=== PATIENT | male | born 1930 | race Caucasian/White ===

== ENCOUNTER 2017-01-27 11:10 | Observation (INO) ==
--- NOTE | 2017-01-27 11:26 | Emergency Department Note ---
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 Periods of time where he does not have any issues that he will have periods of time or he requires blood. He just received a transfusion 2 units a few weeks ago. Today he was found to have a hemoglobin of 4.3. Son is here the patient's a DNR Comfort Care only. He states he is only here for blood only does not need any further evaluation. Onset (ago): day(s) (Hemoglobin) Pain Scale: 0 - Related Data Home Medications Medication Instructions Recorded Confirmed Acetaminophen [Tylenol] 650 mg PO Q4H PRN 05/13/16 09/25/16 Ascorbate Calcium [Vitamin C] 500 mg PO BID 05/13/16 09/25/16 Cyanocobalamin (B-12) [Vitamin B12] 1,000 mcg IM QMONTH 05/13/16 09/25/16 Cyanocobalamin (Vitamin B-12) 1,000 mcg PO DAILY 05/13/16 09/25/16 [Vitamin B-12] Desmopressin Acetate [Ddavp] 1 spray NS MOTH 05/13/16 09/25/16 Docusate [Colace] 100 mg PO BID 05/13/16 09/28/16 FentaNYL PATCH [Duragesic] 12 mcg TD Q72H 05/13/16 09/25/16 Ferrous Sulfate [Iron Supplement] 325 mg PO DAILY 05/13/16 09/25/16 Hydralazine HCl 50 mg PO Q8H 05/13/16 09/25/16 Polyethylene Glycol 3350 [MiraLAX] 17 gm PO DAILY 05/13/16 09/25/16 Tamsulosin [Flomax] 0.4 mg PO HS 05/13/16 09/25/16 Travoprost [Travatan Z] 1 drop BOTH EYES DAILY 05/13/16 09/25/16 LORazepam [Ativan] 0.5 mg PO DAILY 09/28/16 09/28/16 Pregabalin [Lyrica] 75 mg PO DAILY 09/28/16 09/28/16 Previous Rx's Medication Instructions Recorded Tranexamic Acid [Lysteda] 1,300 mg PO BID 60 Days 07/24/15 Haloperidol [Haldol] 0.5 mg PO BID PRN #0 tablet 05/18/16 Omeprazole [PriLOSEC] 40 mg PO BIDAC capsule 05/18/16 Allergies Allergy/AdvReac Type Severity Reaction Status Date / Time Penicillins Allergy Swelling Verified 07/04/15 12:33 of Lip/Tongue/Throat ibuprofen AdvReac Unknown Verified 05/13/16 15:45 NSAIDS (Non-Steroidal AdvReac Unknown Verified 05/13/16 15:45 Anti-Inflamma salicylates AdvReac Unknown Verified 05/13/16 15:45 Constitutional: Denies: fever, chills, weakness, weight change Eyes: Denies: eye pain, eye discharge, vision change ENT ED: Denies: ear pain, throat pain, dental pain, hearing loss, epistaxis, congestion, dysphagia Cardiovascular: Denies: chest pain, palpitations, dyspnea on exertion, edema, syncope Respiratory: Denies: cough, dyspnea, wheezes, hemoptysis, stridor Gastrointestinal: Denies: abdominal pain, nausea, vomiting, diarrhea, constipation, hematemesis, melena, hematochezia Genitourinary: Denies: urgency, dysuria, frequency, hematuria Musculoskeletal: Denies: back pain, neck pain, arthralgia, myalgia Integumentary: Denies: rash, abrasion, lesions Neurological: Reports: weakness (Generalized). Denies: headache, numbness, paresthesias, confusion, abnormal gait, vertigo Psychiatric: Denies: anxiety, depression, suicidal thoughts, homicidal thoughts , auditory hallucinations, visual hallucinations Endocrine: Denies: fatigue Hematological/Lymphatic: Denies: easy bleeding, easy bruising Allergic/Immunologic: Denies: facial swelling, urticaria Past Medical History - Past Medical History Medical history: Reports: arthritis, atrial fibrillation, coronary artery disease, dementia, diabetes, GERD, hypertension, myocardial infarction, other Psychiatric history: Reports: anxiety, other - Social History Smoking Status: Former smoker Smokeless Tobacco Status: No Alcohol use: Reports: none Drug use: Reports: none Physical Exam - General Limitations: no limitations General appearance: alert - Head Head exam: atraumatic, normocephalic, normal inspection - Eye Eye exam: Present: normal appearance, PERRL, EOMI - ENT ENT exam: normal exam, normal oropharynx, mucous membranes moist - Neck Neck exam: Present: normal inspection, full ROM, trachea midline - Chest Chest inspection: Present: normal inspection, symmetric chest wall rise - Respiratory Respiratory exam: Present: normal lung sounds bilaterally - Cardiovascular Cardiovascular exam: Present: regular rate, normal rhythm, normal heart sounds - Abdominal Exam Abdominal exam: Present: soft, Non-Tender. Absent: tenderness, distention, guarding, rebound, rigidity - Extremities Exam Extremities exam: Present: normal inspection, full ROM. Absent: tenderness, pedal edema - Expanded Lower Extremity Exam Neurovascular/Tendon exam: Absent: motor deficit, sensory deficit, tendon deficit - Back Exam Back exam: Present: normal inspection, full ROM. 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 Patient is a DNR CC. He is here for blood transfusion. Time: 13:08 - Consultations Consultation #1: Discussed with Emily Tee nurse practitioner, admit. Time: 13:07 Vital Signs Temperature 98.6 F 01/27/17 11:16 Pulse Rate 91 01/27/17 11:16 Respiratory Rate 18 01/27/17 11:16 Blood Pressure 119/57 01/27/17 11:16 O2 Sat by Pulse Oximetry 97 01/27/17 11:16 Temperature 98.6 F 01/27/17 11:16 Pulse Rate 90 01/27/17 12:59 Respiratory Rate 18 01/27/17 12:59 Blood Pressure 101/55 01/27/17 12:59 O2 Sat by Pulse Oximetry 96 01/27/17 12:59 Oxygen Delivery Oxygen Delivery Room Air Medical Decision Making - Lab Data Result diagrams: 01/27/17 12:40 Lab Results 01/27/17 01/27/17 Range/Units 08:45 12:40 WBC 7.8 (4.3-11.1) K/mcL RBC 1.41 L (4.19-5.50) M/mcL Hgb 4.3 L* (12.9-16.9) g/dL Hct 14.7 L* (37.5-50.1) % MCV 104.3 H (83.0-100.0) fL MCH 30.5 (28.0-33.3) pg MCHC 29.3 L (31.6-35.5) g/dL RDW 17.2 H (11.5-14.5) % Plt Count 294 (140-400) K/mcL MPV 10.9 (9.4-12.4) fL Nucleated RBCs/100 WBC 0.5 H (0) /100 WBC Blood Type O POSITIVE Crossmatch See Detail
[2017-01-27 12:57] LABS: Eosinophils # 0.1 K/mcL (0.0-0.6); Eosinophils % 1.4 %; Immature Granulocytes % 0.6 % (0-4); Lymphocytes # 0.4 K/mcL (0.6-4.6); Lymphocytes % 5.4 %; Mean Corpuscular HGB Conc 29.3 g/dL (31.6-35.5); Mean Corpuscular Hemoglobin 30.5 pg (28.0-33.3); Mean Corpuscular Volume 104.3 fL (83.0-100.0); Mean Platelet Volume 10.9 fL (9.4-12.4); Monocytes # 0.9 K/mcL (0.0-1.3); Monocytes % 11.3 %; Neutrophils # 6.3 K/mcL (1.6-8.9); Nucleated Red Blood Cells 0.5 /100 WBC (0); Platelet Count 294 K/mcL (140-400); Red Blood Count 1.41 M/mcL (4.19-5.50); Red Cell Distribution Width 17.2 % (11.5-14.5); Segmented Neutrophils % 81.3 %
[2017-01-27 13:03] LABS: Hematocrit 14.7 % (37.5-50.1); Hemoglobin 4.3 g/dL (12.9-16.9)
[2017-01-27 13:07] LABS: BUN/Creatinine Ratio 33 (6-26); Carbon Dioxide 25 mEq/L (19-29); Chloride 109 mEq/L (98-109); Glucose 186 mg/dL (70-99); Osmolality,Calculated 305 (280-300); Potassium 3.9 mEq/L (3.5-4.5); Sodium 142 mEq/L (136-145); eGFR For African Americans > 60 (> 60); eGFR For Non-African Americans > 60 (> 60)
[2017-01-27 13:08] LABS: Blood Urea Nitrogen 30 mg/dL (8-26)
[2017-01-27 13:43] LABS: Anisocytosis 1+ (Not Present)
[2017-01-27 13:44] LABS: Hypochromasia Present (Not Present)
[2017-01-27 13:45] LABS: Macrocytosis Present (Not Present); Polychromasia 3+ (Not Present)
[2017-01-27 13:46] LABS: Basophilic Stippling 1+ (Not Present); Platelet Estimate Normal (Normal)
[2017-01-27] MEDS ORDERED: 0.9 % Sodium Chloride 250 ML ONE ×2 (13:47→17:55)
[2017-01-27] MEDS ORDERED: Furosemide 20 MG/2 ML VIAL IVP ONE (14:35)
[2017-01-27] MEDS ORDERED: Naloxone 0.4 MG/ML INJ IVP PRN (14:36)
--- NOTE | 2017-01-27 15:34 | Internal Med History&Physical ---
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 Routine check of H&H revealed hemoglobin of 4.3 type and cross for 2 units of PRBCs will give Lasix in between due to history of congestive heart failure 2 we will recheck H&H if hemoglobin above 7 will discharge back to ECF (2) Von Willebrands disease Current visit: No Status: Chronic 1 she is being followed by oncology will continue with home regime and have patient follow up with oncology as outpatient Internal Medicine - H&P: HPI Chief complaint: low hgb Admitted From: Emergency Dept Plans for Post Hospital Care: Transfer Care Home Facility History of present illness: Mr. 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 Patient has severe dementia information is obtained from medical records and son who is at bedside. According to the son and patient underwent routine blood draw today was found to have a hemoglobin of 4.3 he does have a past history of bleeding his most recent transfusion was approximately 10 days ago. He presented to the ER for blood transfusion. According to ER records patient's hemoglobin was 4.3, he was typed and screened for 2 units PRBCs According to the patient's son and the patient is a DNR CC he requests no further workup and would like the patient to receive blood and be discharged back to ECF. He has been admitted for blood transfusion of 2 units PRBCs we will recheck his hemoglobin if of greater than 7 we will transfer back to ECF. Presently patient is confused pleasant and appropriate he does not appear to be any distress he is hemodynamically stable at this time. Past Med Surg Social Fam HX - Past Medical History Medical history: arthritis, atrial fibrillation, coronary artery disease, dementia, diabetes, GERD, hypertension, myocardial infarction, other Psychiatric history: anxiety, other - Social History Smoking Status: Former smoker Smokeless Tobacco Status: No Alcohol use: none Drug use: none - Family History Mother Living Status: Cause of : liver cancer Hx Family Cardiac Disorders: Yes Hx Family Respiratory Disorders: No Hx Family Cancer: Yes (liver cancer) Hx Family Genitourinary Disorders: No Hx Family Endocrine Disorder: No Hx Family Musculoskeletal Disorders: No Hx Family Neuromuscular Disorders: No Hx Family Neurologic Disorders: No Hx Family HEENT Disorders: Yes (thinks so) Hx Family Autoimmune Disorders: No Hx Family Reproductive Disorders: No Hx Family Psychosocial Disorders: No Hx Family Medical Disorders: No Father Living Status: Hx Family Cardiac Disorders: Yes (HTN) Hx Family Respiratory Disorders: No Hx Family Cancer: No Hx Family GI Disorders: No Hx Family Genitourinary Disorders: No Hx Family Endocrine Disorder: Yes (DM) Hx Family Musculoskeletal Disorders: No Hx Family Neuromuscular Disorders: No Hx Family Neurologic Disorders: No Hx Family HEENT Disorders: No Hx Family Autoimmune Disorders: No Hx Family Reproductive Disorders: No Hx Family Psychosocial Disorders: No Hx Family Medical Disorders: No Son Living Status: Still Living Hx Family Cardiac Disorders: Yes (htn) Internal Medicine - H&P: Meds Tranexamic Acid [Lysteda] 1,300 mg PO BID 60 Days 07/24/15 [Rx] Acetaminophen [Tylenol] 325 mg PO Q4H PRN 05/13/16 [History] Ascorbate Calcium [Vitamin C] 500 mg PO BID 05/13/16 [History] Cyanocobalamin (B-12) [Vitamin B12] 1,000 mcg IM QMONTH 05/13/16 [History] Cyanocobalamin (Vitamin B-12) [Vitamin B-12] 1,000 mcg PO DAILY 05/13/16 [ History] Desmopressin Acetate [Ddavp] 1 spray NS MOTH 05/13/16 [History] Docusate [Colace] 100 mg PO BID 05/13/16 [History] FentaNYL PATCH [Duragesic] 12 mcg TD Q72H 05/13/16 [History] Ferrous Sulfate [Iron Supplement] 325 mg PO DAILY 05/13/16 [History] Hydralazine HCl 50 mg PO Q8H 05/13/16 [History] Polyethylene Glycol 3350 [MiraLAX] 17 gm PO DAILY 05/13/16 [History] Tamsulosin [Flomax] 0.4 mg PO HS 05/13/16 [History] Travoprost [Travatan Z] 1 drop BOTH EYES BID 05/13/16 [History] Omeprazole [PriLOSEC] 40 mg PO BIDAC capsule 05/18/16 [Rx] LORazepam [Ativan] 0.5 mg PO 1400 09/28/16 [History] Pregabalin [Lyrica] 75 mg PO BID 09/28/16 [History] Nitrofurantoin Monohyd/M-Cryst [Macrobid 100 mg Capsule] 100 mg PO BID 01/27/17 [History] Timolol Maleate 0.5% [Timolol Maleate 0.5%] 1 drop LEFT EYE BID 01/27/17 [ History] Allergies Penicillins Allergy (Verified 07/04/15 12:33) Swelling of Lip/Tongue/Throat ibuprofen Adverse Reaction (Verified 05/13/16 15:45) Unknown List from [facility] NSAIDS (Non-Steroidal Anti-Inflamma Adverse Reaction (Verified 05/13/16 15:45) Unknown List from [facility] salicylates Adverse Reaction (Verified 05/13/16 15:45) Unknown List from [facility] ROS unobtainable: due to mental status All Systems PM: A 10-system review of systems was performed and is negative for pertinent findings except as documented above in the HPI. - Constitutional Vitals: Temp Pulse Resp BP Pulse Ox 98.7 F 82 14 144/77 93 L 01/27/17 15:14 01/27/17 15:14 01/27/17 15:14 01/27/17 15:14 01/27/17 15:14 General appearance: Present: A&O X 0, cooperative - Head Head exam: Present: atraumatic, normocephalic - Eye Eye exam: Present: PERRL, conjuntiva pink, sclera anicteric Pupils: Present: PERRL - Neck Neck exam general surgery: Present: supple, trachea midline. Absent: lymphadenopathy - Respiratory Respiratory exam: Present: CTAB. Absent: accessory muscle use, rales, rhonchi, wheezes - Cardiovascular Cardiovascular exam: Present: RRR, +S1, +S2. Absent: diastolic murmur, gallop, rubs, systolic murmur - GI/Abdominal GI/Abdominal exam: Present: normal bowel sounds, soft, no peritoneal signs. Absent: distended, tenderness - Extremities Exam Extremities exam: Present: warm, radial pulses palpable and symetrical. Absent : calf tenderness, cyanotic, pedal edema - Neurological Exam Neurological exam: Present: alert. Absent: pronater drift, facial droop, speech deficit - Skin Skin exam: Present: dry, intact Internal Med - H&P Results - Labs CBC & Chem 7: 01/27/17 12:40 01/27/17 12:40 - VTE Reasons for not Prescribing Prophylaxis: Treatment not Indicated - Low risk for VTE <Bertram Mora - Last Filed: 01/27/17 20:31> Internal Medicine - H&P: HPI History of present illness: Mr. Mejia is a 86 year old male All Systems PM: A 10-system review of systems was performed and is negative for pertinent findings except as documented above in the HPI. - Constitutional Vitals: Temp Pulse Resp BP Pulse Ox 98.3 F 79 16 144/71 93 L 01/27/17 18:51 01/27/17 18:51 01/27/17 18:51 01/27/17 18:51 01/27/17 18:51 Internal Med - H&P Results - Labs CBC & Chem 7: 01/27/17 12:40 01/27/17 12:40 - Attending Attestation I examined this patient and my medical decision-making was reviewed with the Advanced Practice Provider. I agree with the documented findings, disposition and treatment plan as described except to the extent set forth below. The patient is asleep, in no acute distress, heart regular rate and rhythm S1- S2 no murmurs rubs or gallops. Abdomen soft nontender nondistended Plan for acute on chronic anemia we will transfuse 2 units PRBC and will discharge the patient back to the care home if hemoglobin is above 7. His hemoglobin is still below 7 we will transfuse a third unit and recheck in the morning.
[2017-01-27] MEDS ORDERED: Acetaminophen 325 MG TABLET PO PRN (15:56)
--- NOTE | 2017-01-27 16:03 | Discharge Summary ---
Date of Encounter: 01/27/17 Time of Encounter: 22:00 - Discharge Diagnosis (1) Acute blood loss anemia Priority: Primary Status: Acute (2) GI bleed Priority: Secondary Status: Chronic Qualifiers: GI bleed type/associated pathology: unspecified gastrointestinal hemorrhage type Qualified Code(s): K92.2 - Gastrointestinal hemorrhage, unspecified (3) Von Willebrands disease Priority: Secondary Status: Chronic - Discharge Medications Home Medications: Tranexamic Acid [Lysteda] 1,300 mg PO BID 60 Days 07/24/15 [Rx] Acetaminophen [Tylenol] 325 mg PO Q4H PRN 05/13/16 [History] Ascorbate Calcium [Vitamin C] 500 mg PO BID 05/13/16 [History] Cyanocobalamin (B-12) [Vitamin B12] 1,000 mcg IM QMONTH 05/13/16 [History] Cyanocobalamin (Vitamin B-12) [Vitamin B-12] 1,000 mcg PO DAILY 05/13/16 [ History] Desmopressin Acetate [Ddavp] 1 spray NS MOTH 05/13/16 [History] Docusate [Colace] 100 mg PO BID 05/13/16 [History] FentaNYL PATCH [Duragesic] 12 mcg TD Q72H 05/13/16 [History] Ferrous Sulfate [Iron Supplement] 325 mg PO DAILY 05/13/16 [History] Hydralazine HCl 50 mg PO Q8H 05/13/16 [History] Polyethylene Glycol 3350 [MiraLAX] 17 gm PO DAILY 05/13/16 [History] Tamsulosin [Flomax] 0.4 mg PO HS 05/13/16 [History] Travoprost [Travatan Z] 1 drop BOTH EYES BID 05/13/16 [History] Omeprazole [PriLOSEC] 40 mg PO BIDAC capsule 05/18/16 [Rx] LORazepam [Ativan] 0.5 mg PO 1400 09/28/16 [History] Pregabalin [Lyrica] 75 mg PO BID 09/28/16 [History] Nitrofurantoin Monohyd/M-Cryst [Macrobid 100 mg Capsule] 100 mg PO BID 01/27/17 [History] Timolol Maleate 0.5% [Timolol Maleate 0.5%] 1 drop LEFT EYE BID 01/27/17 [ History] Allergies/Adverse Reactions: Allergies Penicillins Allergy (Verified 07/04/15 12:33) Swelling of Lip/Tongue/Throat ibuprofen Adverse Reaction (Verified 05/13/16 15:45) Unknown List from [facility] NSAIDS (Non-Steroidal Anti-Inflamma Adverse Reaction (Verified 05/13/16 15:45) Unknown List from [facility] salicylates Adverse Reaction (Verified 05/13/16 15:45) Unknown List from [facility] Date of admission: 01/27/17 14:05 Primary care physician: Rik Perez MD Consults: 01/27/17 14:57 Consult to [employer] Superintendent [CONS] Routine Reason for SW Consult: patient from [facility]. bed hold? 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 He was typed and crossed for 2 units PRBC and transfused with 20 of lasix administered between units. He tolerated the transfusions without any adverse effects and was discharged back to ECF. He is followed by Hematology and will be monitored as an outpatient per their team. Hospital course: Mr. Mejia is a 86 year old male - Time Spent with Patient Total time spent providing and/or coordinating discharge services: Less than 30 minutes - Constitutional Vitals: Temp Pulse Resp BP Pulse Ox 98.7 F 82 14 144/77 93 L 01/27/17 15:14 01/27/17 15:14 01/27/17 15:14 01/27/17 15:14 01/27/17 15:14 Exam: confused - Eye Eye exam: Present: PERRL, conjuntiva pink, sclera anicteric Pupils: Present: PERRL - Neck Neck exam general surgery: Present: supple, trachea midline. Absent: lymphadenopathy - Respiratory Respiratory exam: Present: CTAB. Absent: accessory muscle use, rales, rhonchi, wheezes - Cardiovascular Cardiovascular exam: Present: RRR, +S1, +S2. Absent: diastolic murmur, gallop, rubs, systolic murmur - GI/Abdominal GI/Abdominal exam: Present: normal bowel sounds, soft, no peritoneal signs. Absent: distended, tenderness - Extremities Exam Extremities exam: Present: warm, radial pulses palpable and symetrical. Absent : calf tenderness, cyanotic, pedal edema - Neurological Exam Neurological exam: Present: alert. Absent: pronater drift, facial droop, speech deficit - VTE Reasons for not Prescribing Prophylaxis: Treatment not Indicated - Low risk for VTE
[2017-01-27] MEDS ORDERED: TRANEXAMIC ACID 1300 MG PO SCH (21:00)
[2017-01-27] MEDS ORDERED: Nitrofurantoin (BID) 100 MG CAPSULE PO SCH (21:00)
[2017-01-27] MEDS ORDERED: Pregabalin 75 MG CAPSULE PO SCH (21:00)
[2017-01-27 23:25] VITALS: BP 129/75
== END 2017-01-28 00:20 ==
LOC: 3BNU 11:10 → EMEROO 11:10 → 3BNU 14:58
PROVIDERS: ADMIT Internal Medicine; ATTEND Nurse Practitioner Family

== ENCOUNTER 2017-02-10 14:41 | Observation (INO) ==
[2017-02-10] MEDS ORDERED: 0.9 % Sodium Chloride 1,000 ML IVC ONE (14:44)
--- NOTE | 2017-02-10 14:45 | Emergency Department Note ---
Disposition Clinical Impression: Von Willebrand disease Anemia Qualifiers: Anemia type: iron deficiency Iron deficiency anemia type: chronic blood loss Qualified Code(s): D50.0 - Iron deficiency anemia secondary to blood loss ( chronic) Disposition: Admitted As Inpatient Condition: Fair Referrals: Rik Perez MD [Primary Care Provider] - Forms: ED Satisfaction Letter General Adult HPI - General Chief complaint: ED Recheck/Abnormal Lab/Rx Stated complaint: low HGB Time Seen by Provider: 02/10/17 14:43 Source: patient Mode of arrival: EMS Nursing Notes Reviewed: Yes Vital Signs Reviewed: Yes - History of Present Illness HPI Narrative: She is a 86-year-old male with multiple transfusions in the past with a history of von Willebrand's disease is coming from a [facility] for blood transfusion. The patient states he is a little more weak than normal he has been nonambulatory for several years. He has had multiple transfusions in the past he had a massive GI bleed approximately 6 years ago requiring surgery. He denies any blade blood per rectum or any black stools Improves with: nothing Worsens with: nothing Associated symptoms: Reports: denies other symptoms Treatments Prior to Arrival: none - Related Data Home Medications Medication Instructions Recorded Confirmed Acetaminophen [Tylenol] 325 mg PO Q4H PRN 05/13/16 01/27/17 Ascorbate Calcium [Vitamin C] 500 mg PO BID 05/13/16 01/27/17 Cyanocobalamin (B-12) [Vitamin B12] 1,000 mcg IM QMONTH 05/13/16 01/27/17 Cyanocobalamin (Vitamin B-12) 1,000 mcg PO DAILY 05/13/16 01/27/17 [Vitamin B-12] Desmopressin Acetate [Ddavp] 1 spray NS MOTH 05/13/16 01/27/17 Docusate [Colace] 100 mg PO BID 05/13/16 01/27/17 FentaNYL PATCH [Duragesic] 12 mcg TD Q72H 05/13/16 01/27/17 Ferrous Sulfate [Iron Supplement] 325 mg PO DAILY 05/13/16 01/27/17 Hydralazine HCl 50 mg PO Q8H 05/13/16 01/27/17 Polyethylene Glycol 3350 [MiraLAX] 17 gm PO DAILY 05/13/16 01/27/17 Tamsulosin [Flomax] 0.4 mg PO HS 06/22/16 03/08/17 Travoprost [Travatan Z] 1 drop BOTH EYES BID 05/13/16 01/27/17 LORazepam [Ativan] 0.5 mg PO 1400 09/28/16 01/27/17 Pregabalin [Lyrica] 75 mg PO BID 09/28/16 01/27/17 Nitrofurantoin Monohyd/M-Cryst 100 mg PO BID 01/27/17 01/27/17 [Macrobid 100 mg Capsule] Timolol Maleate 0.5% [Timolol 1 drop LEFT EYE BID 01/27/17 01/27/17 Maleate 0.5%] Previous Rx's Medication Instructions Recorded Tranexamic Acid [Lysteda] 1,300 mg PO BID 60 Days 07/24/15 Omeprazole [PriLOSEC] 40 mg PO BIDAC capsule 05/18/16 Allergies Allergy/AdvReac Type Severity Reaction Status Date / Time Penicillins Allergy Swelling Verified 07/04/15 12:33 of Lip/Tongue/Throat ibuprofen AdvReac Unknown Verified 05/13/16 15:45 NSAIDS (Non-Steroidal AdvReac Unknown Verified 05/13/16 15:45 Anti-Inflamma salicylates AdvReac Unknown Verified 05/13/16 15:45 All systems ED: reviewed and negative except as stated. Constitutional: Reports: weakness. Denies: fever, chills Gastrointestinal: Denies: abdominal pain, nausea, vomiting, melena, hematochezia Past Medical History - Past Medical History Source: patient, old records reviewed, obtained from family, nursing notes reviewed Medical history: Reports: arthritis, atrial fibrillation, coronary artery disease, dementia, diabetes, GERD, hypertension, myocardial infarction, other Psychiatric history: Reports: anxiety, other - Social History Smoking Status: Former smoker Smokeless Tobacco Status: No Alcohol use: Reports: none Drug use: Reports: none Physical Exam - General Limitations: no limitations - Head Head exam: atraumatic, normocephalic, normal inspection - Eye Eye exam: Present: other (pale conjunctivae) - ENT ENT exam: normal exam, normal oropharynx, mucous membranes moist - Neck Neck exam: Present: normal inspection, full ROM, trachea midline - Chest Chest inspection: Present: normal inspection, symmetric chest wall rise - Respiratory Respiratory exam: Present: normal lung sounds bilaterally - Cardiovascular Cardiovascular exam: Present: regular rate, normal rhythm, normal heart sounds - Abdominal Exam Abdominal exam: Present: soft, Non-Tender. Absent: tenderness, distention, guarding, rebound, rigidity - Back Exam Back exam: Present: normal inspection, full ROM. Absent: tenderness - Neurological Exam Neurological exam: Present: alert, oriented X3 - Psychiatric Psychiatric exam: Present: normal affect, normal mood - Skin Skin exam: Present: warm, dry, intact, normal color Course Vital Signs Temperature 98.1 F 02/10/17 14:42 Pulse Rate 73 02/10/17 14:42 Respiratory Rate 16 02/10/17 14:42 Blood Pressure 128/77 02/10/17 14:42 O2 Sat by Pulse Oximetry 99 02/10/17 14:42 Temperature 98.1 F 02/10/17 14:42 Pulse Rate 73 02/10/17 14:42 Respiratory Rate 16 02/10/17 14:42 Blood Pressure 128/77 02/10/17 14:42 O2 Sat by Pulse Oximetry 99 02/10/17 14:42 Oxygen Delivery Oxygen Delivery Room Air Medical Decision Making - Medical Records Medical records reviewed: Yes I reviewed the patient's medical records. - Lab Data Lab results reviewed: Yes I reviewed the patient's lab results. Result diagrams: 02/10/17 14:58 02/10/17 14:58 Lab Results 02/10/17 02/10/17 02/10/17 Range/Units 14:58 14:58 14:58 WBC 5.9 (4.3-11.1) K/mcL RBC 2.28 L (4.19-5.50) M/mcL Hgb 6.5 L (12.9-16.9) g/dL Hct 22.4 L (37.5-50.1) % MCV 98.2 (83.0-100.0) fL MCH 28.5 (28.0-33.3) pg MCHC 29.0 L (31.6-35.5) g/dL RDW 15.3 H (11.5-14.5) % Plt Count 389 (140-400) K/mcL MPV 10.4 (9.4-12.4) fL Immature Gran % 0.5 (0-4) % Seg Neutrophils % 76.4 % Lymphocytes % 11.3 % Monocytes % 9.4 % Eosinophils % 1.7 % Basophils % 0.7 % Neutrophils # 4.5 (1.6-8.9) K/mcL Lymphocytes # 0.7 (0.6-4.6) K/mcL Monocytes # 0.6 (0.0-1.3) K/mcL Eosinophils # 0.1 (0.0-0.6) K/mcL Basophils # 0.0 (0.0-0.2) K/mcL PT 11.0 (9.4-12.1) Seconds INR 1.0 APTT 37.5 H (26.0-36.0) Seconds Sodium 140 (136-145) mEq/L Potassium 3.3 L (3.5-4.5) mEq/L Chloride 107 (98-109) mEq/L Carbon Dioxide 22 (19-29) mEq/L BUN 16 (8-26) mg/dL Creatinine 0.80 (0.72-1.25) mg/dL Est GFR ( Amer) > 60 (> 60) Est GFR (Non-Af Amer) > 60 (> 60) BUN/Creatinine Ratio 20 (6-26) Glucose 197 H (70-99) mg/dL Calculated Osmolality 297 (280-300) Calcium 7.8 L (8.6-10.8) mg/dL Magnesium 1.8 (1.6-2.6) mg/dL Critical Care Time Total Critical Care Time: 40 Attestation: Critical care performed: Time is exclusive of separately billable procedures. Time includes: direct patient care, patient reassessment, coordination of patient care, interpretation of data (laboratory data, radiology data, and respiratory data), review of patient's medical records, medical consultation and documentation of patient care. Procedures included in critical care time: Procedures excluded from critical care time:
[2017-02-10 15:11] LABS: Basophils % 0.7 %; Eosinophils # 0.1 K/mcL (0.0-0.6); Eosinophils % 1.7 %; Hematocrit 22.4 % (37.5-50.1); Hemoglobin 6.5 g/dL (12.9-16.9); Immature Granulocytes % 0.5 % (0-4); Lymphocytes # 0.7 K/mcL (0.6-4.6); Lymphocytes % 11.3 %; Mean Corpuscular Hemoglobin 28.5 pg (28.0-33.3); Mean Corpuscular Volume 98.2 fL (83.0-100.0); Mean Platelet Volume 10.4 fL (9.4-12.4); Monocytes # 0.6 K/mcL (0.0-1.3); Monocytes % 9.4 %; Neutrophils # 4.5 K/mcL (1.6-8.9); Platelet Count 389 K/mcL (140-400); Red Blood Count 2.28 M/mcL (4.19-5.50); Red Cell Distribution Width 15.3 % (11.5-14.5); Segmented Neutrophils % 76.4 %
[2017-02-10 15:23] LABS: Activated Partial Thrombo Time 37.5 Seconds (26.0-36.0)
[2017-02-10 15:24] LABS: BUN/Creatinine Ratio 20 (6-26); Blood Urea Nitrogen 16 mg/dL (8-26); Calcium 7.8 mg/dL (8.6-10.8); Carbon Dioxide 22 mEq/L (19-29); Chloride 107 mEq/L (98-109); Glucose 197 mg/dL (70-99); Magnesium 1.8 mg/dL (1.6-2.6); Osmolality,Calculated 297 (280-300); Potassium 3.3 mEq/L (3.5-4.5); Sodium 140 mEq/L (136-145); eGFR For African Americans > 60 (> 60); eGFR For Non-African Americans > 60 (> 60)
[2017-02-10] MEDS ORDERED: 0.9 % Sodium Chloride 250 ML ONE ×2 (17:31→22:02)
[2017-02-10] MEDS ORDERED: Furosemide 20 MG/2 ML VIAL IVP ONE (21:52)
[2017-02-10] MEDS ORDERED: Naloxone 0.4 MG/ML INJ IVP PRN (23:54)
[2017-02-11] MEDS ORDERED: Cyanocobalamin (B-12) 1,000 MCG TABLET PO SCH
--- NOTE | 2017-02-11 00:08 | Internal Med History&Physical ---
<AsterGaEricka Ann - Last Filed: 02/11/17 00:16> Date of Encounter: 02/11/17 Time of Encounter: 00:06 Assessment and Plan (1) Anemia Current visit: No Status: Acute transfuse 2u RBCs 20lasix in between transfusions recheck H/H post transfusions ca 7.8 replace Ca recheck Ca and ionized Ca Qualifiers: Anemia type: unspecified type Qualified Code(s): D64.9 - Anemia, unspecified (2) Hypocalcemia Current visit: Yes Status: Acute possibly secondary to repeated blood transfusions replace recheck (3) Hypokalemia Current visit: Yes Status: Acute K 3.3 will replace recheck (4) Von Willebrand disease Current visit: Yes Status: Chronic (5) Acute blood loss anemia Current visit: No Status: Acute (6) Severe dementia Current visit: No Status: Chronic (7) Diabetes Current visit: No Status: Chronic Qualifiers: Diabetes mellitus type: type 2 Diabetes mellitus complication status: without complication Diabetes mellitus care home insulin use: without terminal supervisor use Qualified Code(s): E11.9 - Type 2 diabetes mellitus without complications Internal Medicine - H&P: HPI Chief complaint: anemia Admitted From: Long-term Nursing Facility Plans for Post Hospital Care: 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 Mejia is a 86 year old male with anemia. PMH of VWF, chronic GI bleeds, small bowel AVM requiring multiple transfusions, dementia. Pt is non ambilatory and altered at baseline but able to answer simple questions. Pt states that he has been more weak and tired then usual the past few days. Which is a common reoccurrence when hemoglobin gets low and is in need of transfusion. Pt denies recent falls, spitting/coughing up blood, blood in stools,CP, palpitation, sob, numbness/tingling. Past Med Surg Social Fam HX - Past Medical History Medical history: arthritis, atrial fibrillation, coronary artery disease, dementia, diabetes, GERD, hypertension, myocardial infarction, other Psychiatric history: anxiety, other - Social History Smoking Status: Former smoker Smokeless Tobacco Status: No Alcohol use: none Drug use: none - Family History Mother Living Status: Hx Family Cardiac Disorders: Yes Hx Family Respiratory Disorders: No Hx Family Cancer: Yes (liver cancer) Hx Family Endocrine Disorder: No Hx Family Neuromuscular Disorders: No Hx Family Neurologic Disorders: No Hx Family HEENT Disorders: Yes (thinks so) Hx Family Autoimmune Disorders: No Father Living Status: Hx Family Cardiac Disorders: Yes (HTN) Hx Family Respiratory Disorders: No Hx Family Cancer: No Hx Family GI Disorders: No Hx Family Endocrine Disorder: Yes (DM) Hx Family Neuromuscular Disorders: No Hx Family Neurologic Disorders: No Hx Family HEENT Disorders: No Hx Family Autoimmune Disorders: No Son Living Status: Still Living Hx Family Cardiac Disorders: Yes (htn) Internal Medicine - H&P: Meds Tranexamic Acid [Lysteda] 1,300 mg PO BID 60 Days 07/24/15 [Rx] Acetaminophen [Tylenol] 325 mg PO Q4H PRN 05/13/16 [History] Ascorbate Calcium [Vitamin C] 500 mg PO BID 05/13/16 [History] Cyanocobalamin (B-12) [Vitamin B12] 1,000 mcg IM QMONTH 05/13/16 [History] Cyanocobalamin (Vitamin B-12) [Vitamin B-12] 1,000 mcg PO DAILY 05/13/16 [ History] Desmopressin Acetate [Ddavp] 1 spray NS MOTH 05/13/16 [History] Docusate [Colace] 100 mg PO BID 05/13/16 [History] FentaNYL PATCH [Duragesic] 12 mcg TD Q72H 05/13/16 [History] Ferrous Sulfate [Iron Supplement] 325 mg PO DAILY 05/13/16 [History] Hydralazine HCl 50 mg PO Q8H 05/13/16 [History] Polyethylene Glycol 3350 [MiraLAX] 17 gm PO DAILY 05/13/16 [History] Tamsulosin [Flomax] 0.4 mg PO HS 05/13/16 [History] Travoprost [Travatan Z] 1 drop BOTH EYES BID 05/13/16 [History] Omeprazole [PriLOSEC] 40 mg PO BIDAC capsule 05/18/16 [Rx] LORazepam [Ativan] 0.5 mg PO 1400 09/28/16 [History] Pregabalin [Lyrica] 75 mg PO BID 09/28/16 [History] Timolol Maleate 0.5% [Timolol Maleate 0.5%] 1 drop LEFT EYE BID 01/27/17 [ History] Oseltamivir [Tamiflu] 75 mg PO DAILY 02/10/17 [History] Allergies Penicillins Allergy (Verified 07/04/15 12:33) Swelling of Lip/Tongue/Throat ibuprofen Adverse Reaction (Verified 05/13/16 15:45) Unknown List from [facility] NSAIDS (Non-Steroidal Anti-Inflamma Adverse Reaction (Verified 05/13/16 15:45) Unknown List from [facility] salicylates Adverse Reaction (Verified 05/13/16 15:45) Unknown List from [facility] All Systems PM: A 10-system review of systems was performed and is negative for pertinent findings except as documented above in the HPI. - Constitutional Constitutional: fatigue, weakness, no chills, no falls - EENT Eyes: no change in vision, no discharge, no pain, no photophobia - Cardiovascular Cardiovascular ROS IM: no chest pain, no diaphoresis, no dyspnea, no lightheadedness, no palpitations, no syncope - Respiratory Respiratory: no cough, no dyspnea, no wheezing, no excessive phlegm production - Gastrointestinal Gastrointestinal: no abdominal pain, no coffee ground emesis, no diarrhea, no hematemesis, no hematochezia, no melena, no nausea, no vomiting - Genitourinary Genitourinary ROS male: as per HPI - Musculoskeletal Musculoskeletal ROS IM: limited range of motion, muscle weakness - Integumentary Integumentary IM: no rash, no unusual bruising - Neurological Neurological ROS: no numbness, no tingling, no tremor(s) - Constitutional Vitals: Temp Pulse Resp BP Pulse Ox 98.0 F 84 12 149/66 98 02/10/17 22:48 02/10/17 22:48 02/10/17 22:48 02/10/17 22:48 02/10/17 22:48 General appearance: Present: A&O X 2, pleasant, no acute distress - Head Head exam: Present: atraumatic, normocephalic - Eye Eye exam: Present: PERRL, conjuntiva pink, sclera anicteric - ENT ENT exam: Present: mucous membranes dry - Neck Neck exam general surgery: Present: supple, trachea midline. Absent: lymphadenopathy - Respiratory Respiratory exam: Present: CTAB. Absent: accessory muscle use, rales, rhonchi, wheezes - Cardiovascular Cardiovascular exam: Present: RRR, +S1, +S2. Absent: diastolic murmur, gallop, rubs, systolic murmur - GI/Abdominal GI/Abdominal exam: Present: normal bowel sounds, soft, no peritoneal signs. Absent: distended, tenderness - Extremities Exam Extremities exam: Present: normal capillary refill, warm, radial pulses palpable and symetrical. Absent: calf tenderness, pedal edema - Neurological Exam Neurological exam: Present: alert, CN II-XII intact. Absent: facial droop - Psychiatric Psychiatric exam: Present: normal affect, normal mood - Skin Skin exam: Present: pallor. Absent: cyanosis, diaphoretic Internal Med - H&P Results - Labs CBC & Chem 7: 02/10/17 14:58 02/10/17 14:58 <Sohan Moreno - Last Filed: 02/11/17 02:38> Internal Medicine - H&P: HPI History of present illness: Mr. Mejia is a 86 year old male All Systems PM: A 10-system review of systems was performed and is negative for pertinent findings except as documented above in the HPI. - Constitutional Vitals: Temp Pulse Resp BP Pulse Ox 98.5 F 72 12 132/73 98 02/11/17 01:08 02/11/17 01:08 02/11/17 01:08 02/11/17 01:08 02/11/17 01:08 Internal Med - H&P Results - Labs CBC & Chem 7: 02/10/17 14:58 02/10/17 14:58 - Attending Attestation I examined this patient and my medical decision-making was reviewed with the ENGINE HOUSE HELPER/PA/Advanced Practice Nurse/Resident Physician. I agree with the documented findings, disposition and treatment plan as described except to the extent set forth below. I discussed the case with the resident Dr. Rodarte. I examined the patient independently. I agree with the physical examination findings, assessment and plan as documented by Dr. Rodarte. Briefly, patient with severe symptomatic anemia needs transfusion. We will recheck hemoglobin.
[2017-02-11] MEDS ORDERED: Calcium Gluconate 2,000 MG in D5% in Water 100 ML IVPB ONE (00:55)
[2017-02-11] MEDS: Ascorbic Acid 500 MG TABLET PO SCH ×2 (01:01→09:02)
[2017-02-11 04:27] LABS: Hematocrit 27.6 % (37.5-50.1); Mean Corpuscular HGB Conc 31.5 g/dL (31.6-35.5); Mean Platelet Volume 10.7 fL (9.4-12.4); Platelet Count 360 K/mcL (140-400); Red Cell Distribution Width 16.2 % (11.5-14.5)
[2017-02-11 04:32] LABS: INR 1.1; Prothrombin Time 11.9 Seconds (9.4-12.1)
[2017-02-11 04:35] LABS: Activated Partial Thrombo Time 33.3 Seconds (26.0-36.0)
[2017-02-11 04:36] LABS: Hemoglobin 8.7 g/dL (12.9-16.9)
[2017-02-11 04:43] LABS: Calcium 8.4 mg/dL (8.6-10.8)
[2017-02-11 04:44] LABS: Ionized Calcium 1.19 mmol/L (1.15-1.35)
[2017-02-11] MEDS ORDERED: Desmopressin Acetate SPRAY 5 ML BOTTLE NS SCH (09:00)
[2017-02-11] MEDS ORDERED: Pregabalin 75 MG CAPSULE PO SCH (09:00)
[2017-02-11] MEDS ORDERED: LYSTEDA PO SCH (09:00)
[2017-02-11] MEDS ORDERED: Latanoprost 2.5 ML BOTTLE BOTH EYES SCH (09:00)
--- NOTE | 2017-02-11 11:27 | Discharge Summary ---
Date of Encounter: 02/11/17 Time of Encounter: 09:30 - Discharge Diagnosis (1) Anemia Priority: Secondary Status: Chronic Comments: Remained stable after receiving 2 units of packed red blood cells. Qualifiers: Anemia type: iron deficiency Iron deficiency anemia type: chronic blood loss Qualified Code(s): D50.0 - Iron deficiency anemia secondary to blood loss (chronic) (2) Von Willebrand disease Priority: Secondary Status: Chronic (3) Hypocalcemia Priority: Secondary Status: Chronic Comments: Acute on chronic. Improved with supplementation. Follow-up outpatient (4) Hypokalemia Priority: Primary Status: Acute Comments: Mild, was repleted prior to discharge, follow-up outpatient (5) Severe dementia Priority: Secondary Status: Chronic Comments: Appropriate and able to answer questions during my interaction with him. Follow -up outpatient (6) Diabetes Priority: Secondary Status: Chronic Comments: Controlled. Recent A1c 5.5%. Follow-up outpatient Qualifiers: Diabetes mellitus type: type 2 Diabetes mellitus complication status: without complication Diabetes mellitus half-way insulin use: without half-way use Qualified Code(s): E11.9 - Type 2 diabetes mellitus without complications - Discharge Medications Home Medications: Tranexamic Acid [Lysteda] 1,300 mg PO BID 60 Days 07/24/15 [Rx] Acetaminophen [Tylenol] 325 mg PO Q4H PRN 05/13/16 [History] Ascorbate Calcium [Vitamin C] 500 mg PO BID 05/13/16 [History] Cyanocobalamin (B-12) [Vitamin B12] 1,000 mcg IM QMONTH 05/13/16 [History] Cyanocobalamin (Vitamin B-12) [Vitamin B-12] 1,000 mcg PO DAILY 05/13/16 [ History] Desmopressin Acetate [Ddavp] 1 spray NS MOTH 05/13/16 [History] Docusate [Colace] 100 mg PO BID 05/13/16 [History] FentaNYL PATCH [Duragesic] 12 mcg TD Q72H 05/13/16 [History] Ferrous Sulfate [Iron Supplement] 325 mg PO DAILY 05/13/16 [History] Hydralazine HCl 50 mg PO Q8H 05/13/16 [History] Polyethylene Glycol 3350 [MiraLAX] 17 gm PO DAILY 05/13/16 [History] Tamsulosin [Flomax] 0.4 mg PO HS 05/13/16 [History] Travoprost [Travatan Z] 1 drop BOTH EYES BID 05/13/16 [History] Omeprazole [PriLOSEC] 40 mg PO BIDAC capsule 05/18/16 [Rx] LORazepam [Ativan] 0.5 mg PO 1400 09/28/16 [History] Pregabalin [Lyrica] 75 mg PO BID 09/28/16 [History] Timolol Maleate 0.5% 1 drop LEFT EYE BID 01/27/17 [History] Oseltamivir [Tamiflu] 75 mg PO DAILY 02/10/17 [History] Allergies/Adverse Reactions: Allergies Penicillins Allergy (Verified 07/04/15 12:33) Swelling of Lip/Tongue/Throat ibuprofen Adverse Reaction (Verified 05/13/16 15:45) Unknown List from [facility] NSAIDS (Non-Steroidal Anti-Inflamma Adverse Reaction (Verified 05/13/16 15:45) Unknown List from [facility] salicylates Adverse Reaction (Verified 05/13/16 15:45) Unknown List from [facility] Date of admission: 02/10/17 16:17 Primary care physician: Rik Perez MD Consults: 02/11/17 07:52 Consult to Parts Sales Advisor [CONS] Routine Reason for SW Consult: reportedly a bedhold at [facility]; may return today or tomorrow Discharging clinician: Edie Raza Anticipated date of discharge: 02/11/17 (back to [facility]) - Patient Status Disposition: Transfer SNF Condition: Fair Functional capacity at discharge: uses cane/walker Overall status at discharge: patient is back to baseline - Discharge Instructions Follow Up With: Rik Perez MD [Primary Care Provider] - Additional Instructions: Follow-up with primary care provider as needed - Diet and Activity Activity: increase activity as tolerated Diet: regular diet Hospital course: Mr. Mejia is a 86 year old male with past medical history of atrial fibrillation not on anticoagulation therapy, CAD, von Willebrand's, chronic GI bleeds, small bowel AVM requiring multiple transfusions, dementia. Patient is a long-term resident at [facility]. He is was brought to emergency department with chief complaint of weakness and fatigue over the past several days prior to presentation. Patient was noted to be anemic in the emergency department and was transfused with 2 units of packed red blood cells. He was initially sent to be admitted to outpatient infusion clinic but was unable to do so so he was admitted to the observation unit and hospitalist service. He was transfused and observed overnight and remained hemodynamically stable and there were no signs of active bleeding. Initial hemoglobin 5.9, 8.7 on day of discharge. Mild hypocalcemia was repleted and improved during this admission. He also had mild hypokalemia and was given supplementation prior to discharge. Patient was alert and interactive and denied pain or shortness of breath. He was able to tolerate a regular diet. He was discharged back to [facility] in stable condition. - Time Spent with Patient Total time spent providing and/or coordinating discharge services: - Constitutional Vitals: Temp Pulse Resp BP Pulse Ox 98.9 F 65 16 169/78 99 02/11/17 06:56 02/11/17 06:56 02/11/17 06:56 02/11/17 06:56 02/11/17 09:00 General appearance: Present: A&O X 2, pleasant, no acute distress, answers questions appropriately - Head Head exam: Present: atraumatic, normocephalic - Eye Eye exam: Present: PERRL (blind), conjuntiva pink, sclera anicteric Pupils: Present: PERRL - Neck Neck exam general surgery: Present: supple, trachea midline. Absent: lymphadenopathy - Respiratory Respiratory exam: Present: decreased breath sounds. Absent: accessory muscle use, rales, respiratory distress, rhonchi, wheezes - Cardiovascular Cardiovascular exam: Present: RRR, +S1, +S2. Absent: diastolic murmur, gallop, rubs, systolic murmur - GI/Abdominal GI/Abdominal exam: Present: distended, normal bowel sounds, soft, no peritoneal signs. Absent: tenderness - Extremities Exam Extremities exam: Present: warm, radial pulses palpable and symetrical. Absent : calf tenderness, cyanotic, pedal edema - Neurological Exam Neurological exam: Present: alert, CN II-XII intact, oriented X3, no focal deficits, strengths equal and symetr throughout. Absent: pronater drift, facial droop, speech deficit - Skin Skin exam: Present: dry, intact, pallor, warm
[2017-02-11] MEDS ORDERED: Potassium Chloride Elixir 20 MEQ/15 ML UDC PO ONE (11:33)
[2017-02-11 11:49] VITALS: BP 137/70
== END 2017-02-11 13:25 ==
LOC: EMEROO 14:41 → 3BNU 14:41
PROVIDERS: ADMIT Internal Medicine; ATTEND Nurse Practitioner Family

== ENCOUNTER 2017-06-11 15:38 | Inpatient (IN) ==
--- NOTE | 2017-06-11 16:02 | Emergency Department Note ---
Disposition Clinical Impression: Anemia Qualifiers: Anemia type: unspecified type Qualified Code(s): D64.9 - Anemia, unspecified Disposition: Admitted As Inpatient Condition: Fair Referrals: NO,PCP [Primary Care Provider] - Forms: ED Satisfaction Letter Time of Disposition: 18:08 Recheck wound or abnormal lab - General Chief Complaint: ED Recheck/Abnormal Lab/Rx Stated Complaint: Needs blood Time Seen by Provider: 06/11/17 15:49 Source: family, EMS Mode of arrival: EMS Limitations: altered mental status Nursing Notes Reviewed: Yes Vital Signs Reviewed: Yes - History of Present Illness HPI Narrative: 86-year-old history of von Willebrand's disease who son states requires intermittent transfusions. He's had this for many years. Patient apparently had a hemoglobin the 6 range 2 days ago. Pt Subjective Complaint: abnormal lab(s) Symptoms Since Prior Visit: no new symptoms - Related Data Home Medications Medication Instructions Recorded Confirmed Acetaminophen [Tylenol] 325 mg PO Q4H PRN 05/13/16 02/10/17 Ascorbate Calcium [Vitamin C] 500 mg PO BID 05/13/16 02/10/17 Cyanocobalamin (B-12) [Vitamin B12] 1,000 mcg IM QMONTH 05/13/16 02/10/17 Cyanocobalamin (Vitamin B-12) 1,000 mcg PO DAILY 05/13/16 02/10/17 [Vitamin B-12] Desmopressin Acetate [Ddavp] 1 spray NS MOTH 05/13/16 02/10/17 Docusate [Colace] 100 mg PO BID 05/13/16 02/10/17 FentaNYL PATCH [Duragesic] 12 mcg TD Q72H 05/13/16 02/10/17 Ferrous Sulfate [Iron Supplement] 325 mg PO DAILY 05/13/16 02/10/17 Hydralazine HCl 50 mg PO Q8H 05/13/16 02/10/17 Polyethylene Glycol 3350 [MiraLAX] 17 gm PO DAILY 05/13/16 02/10/17 Tamsulosin [Flomax] 0.4 mg PO HS 05/13/16 02/10/17 Travoprost [Travatan Z] 1 drop BOTH EYES BID 05/13/16 02/10/17 LORazepam [Ativan] 0.5 mg PO 1400 11/07/16 03/22/17 Pregabalin [Lyrica] 75 mg PO BID 09/28/16 02/10/17 Timolol Maleate 0.5% 1 drop LEFT EYE BID 01/27/17 02/10/17 Oseltamivir [Tamiflu] 75 mg PO DAILY 02/10/17 02/10/17 Previous Rx's Medication Instructions Recorded Tranexamic Acid [Lysteda] 1,300 mg PO BID 60 Days 07/24/15 Omeprazole [PriLOSEC] 40 mg PO BIDAC capsule 05/18/16 Octreotide Acetate (LAR) 20 mg IM QMONTH #3 kit 04/05/17 [Sandostatin Lar] Allergies Allergy/AdvReac Type Severity Reaction Status Date / Time Penicillins Allergy Swelling Verified 07/04/15 12:33 of Lip/Tongue/Throat ibuprofen AdvReac Unknown Verified 05/13/16 15:45 NSAIDS (Non-Steroidal AdvReac Unknown Verified 05/13/16 15:45 Anti-Inflamma salicylates AdvReac Unknown Verified 05/13/16 15:45 All systems ED: reviewed and negative except as stated. Constitutional: Denies: fever, chills, weakness, weight change Eyes: Denies: eye pain, eye discharge, vision change ENT ED: Denies: ear pain, throat pain, dental pain, hearing loss, epistaxis, congestion, dysphagia Cardiovascular: Denies: chest pain, palpitations, dyspnea on exertion, edema, syncope Respiratory: Denies: cough, dyspnea, wheezes, hemoptysis, stridor Gastrointestinal: Denies: abdominal pain, nausea, vomiting, diarrhea, constipation, hematemesis, melena, hematochezia Genitourinary: Denies: urgency, dysuria, frequency, hematuria Musculoskeletal: Denies: back pain, neck pain, arthralgia, myalgia Integumentary: Denies: rash, abrasion, lesions Neurological: Denies: headache, weakness, numbness, paresthesias, confusion, abnormal gait, vertigo Psychiatric: Denies: anxiety, depression, suicidal thoughts, homicidal thoughts , auditory hallucinations, visual hallucinations Endocrine: Denies: fatigue Hematological/Lymphatic: Denies: easy bleeding, easy bruising Allergic/Immunologic: Denies: facial swelling, urticaria Past Medical History - Past Medical History Medical history: Reports: arthritis, atrial fibrillation, coronary artery disease, dementia, diabetes, GERD, hypertension, myocardial infarction, other Psychiatric history: Reports: anxiety, other - Social History Smoking Status: Former smoker Smokeless Tobacco Status: No Alcohol use: Reports: none Drug use: Reports: none Physical Exam - General Limitations: altered mental status General appearance: alert - Head Head exam: atraumatic, normocephalic, normal inspection - Eye Eye exam: Present: normal appearance - ENT ENT exam: normal exam, normal oropharynx, mucous membranes moist - Neck Neck exam: Present: normal inspection, full ROM, trachea midline - Chest Chest inspection: Present: normal inspection, symmetric chest wall rise - Respiratory Respiratory exam: Present: normal lung sounds bilaterally - Cardiovascular Cardiovascular exam: Present: regular rate - Abdominal Exam Abdominal exam: Present: soft, Non-Tender. Absent: tenderness, distention, guarding, rebound, rigidity - Extremities Exam Extremities exam: Present: normal inspection, full ROM. Absent: tenderness, pedal edema - Expanded Lower Extremity Exam Neurovascular/Tendon exam: Absent: motor deficit, sensory deficit, tendon deficit Gait: not tested/not observed - Back Exam Back exam: Present: normal inspection, full ROM. Absent: tenderness - Psychiatric Psychiatric exam: Present: normal affect, normal mood - Skin Skin exam: Present: warm, dry, intact, normal color Course - Reevaluation(s) Reevaluation #1: 86-year-old with history of von Willebrand's disease comes in with low hemoglobin. Globin 2 days ago 6.8, we repeated today was 7.5. We did obtain consultation with hematology who recommended at least one unit of blood. Time: 18:58 - Consultations Consultation #1: Discussed with Dr. Padilla, admit for transfusion. Time: 18:05 Consultation #2: Discussed with Dr. Ayala, admit. Time: 18:57 Vital Signs Temperature 99.2 F 06/11/17 15:46 Pulse Rate 83 06/11/17 15:46 Respiratory Rate 16 06/11/17 15:46 Blood Pressure 121/61 06/11/17 15:46 O2 Sat by Pulse Oximetry 97 06/11/17 15:46 Temperature 99.2 F 06/11/17 15:46 Pulse Rate 59 06/11/17 17:43 Respiratory Rate 16 06/11/17 17:43 Blood Pressure 139/66 06/11/17 17:43 O2 Sat by Pulse Oximetry 98 06/11/17 17:43 Oxygen Delivery Oxygen Delivery Room Air Recheck wound or abnormal lab - Lab Data Result diagrams: 06/11/17 16:24 06/11/17 16:24 Lab Results 06/11/17 06/11/17 06/11/17 Range/Units 16:24 16:24 16:24 WBC 5.5 (4.3-11.1) K/mcL RBC 2.47 L (4.19-5.50) M/mcL Hgb 7.6 L (12.9-16.9) g/dL Hct 25.4 L (37.5-50.1) % MCV 102.8 H (83.0-100.0) fL MCH 30.8 (28.0-33.3) pg MCHC 29.9 L (31.6-35.5) g/dL RDW 16.6 H (11.5-14.5) % Plt Count 311 (140-400) K/mcL MPV 11.4 (9.4-12.4) fL Immature Gran % 0.2 (0-4) % Seg Neutrophils % 74.3 % Lymphocytes % 11.7 % Monocytes % 10.8 % Eosinophils % 2.5 % Basophils % 0.5 % Neutrophils # 4.1 (1.6-8.9) K/mcL Lymphocytes # 0.7 (0.6-4.6) K/mcL Monocytes # 0.6 (0.0-1.3) K/mcL Eosinophils # 0.1 (0.0-0.6) K/mcL Basophils # 0.0 (0.0-0.2) K/mcL PT 10.3 (9.4-12.1) Seconds INR 1.0 APTT 32.2 (26.0-36.0) Seconds Sodium 143 (136-145) mEq/L Potassium 4.4 (3.5-4.5) mEq/L Chloride 110 H (98-109) mEq/L Carbon Dioxide 26 (19-29) mEq/L BUN 16 (8-26) mg/dL Creatinine 0.84 (0.72-1.25) mg/dL Est GFR ( Amer) > 60 (> 60) Est GFR (Non-Af Amer) > 60 (> 60) BUN/Creatinine Ratio 19 (6-26) Glucose 171 H (70-99) mg/dL Calculated Osmolality 301 H (280-300) Calcium 8.5 L (8.6-10.8) mg/dL Blood Type Antibody Screen Crossmatch 06/11/17 Range/Units 16:24 WBC (4.3-11.1) K/mcL RBC (4.19-5.50) M/mcL Hgb (12.9-16.9) g/dL Hct (37.5-50.1) % MCV (83.0-100.0) fL MCH (28.0-33.3) pg MCHC (31.6-35.5) g/dL RDW (11.5-14.5) % Plt Count (140-400) K/mcL MPV (9.4-12.4) fL Immature Gran % (0-4) % Seg Neutrophils % % Lymphocytes % % Monocytes % % Eosinophils % % Basophils % % Neutrophils # (1.6-8.9) K/mcL Lymphocytes # (0.6-4.6) K/mcL Monocytes # (0.0-1.3) K/mcL Eosinophils # (0.0-0.6) K/mcL Basophils # (0.0-0.2) K/mcL PT (9.4-12.1) Seconds INR APTT (26.0-36.0) Seconds Sodium (136-145) mEq/L Potassium (3.5-4.5) mEq/L Chloride (98-109) mEq/L Carbon Dioxide (19-29) mEq/L BUN (8-26) mg/dL Creatinine (0.72-1.25) mg/dL Est GFR ( Amer) (> 60) Est GFR (Non-Af Amer) (> 60) BUN/Creatinine Ratio (6-26) Glucose (70-99) mg/dL Calculated Osmolality (280-300) Calcium (8.6-10.8) mg/dL Blood Type O POSITIVE Antibody Screen NEGATIVE Crossmatch See Detail
[2017-06-11 17:09] LABS: Basophils % 0.5 %; Eosinophils # 0.1 K/mcL (0.0-0.6); Eosinophils % 2.5 %; Hematocrit 25.4 % (37.5-50.1); Immature Granulocytes % 0.2 % (0-4); Lymphocytes # 0.7 K/mcL (0.6-4.6); Lymphocytes % 11.7 %; Mean Corpuscular HGB Conc 29.9 g/dL (31.6-35.5); Mean Corpuscular Hemoglobin 30.8 pg (28.0-33.3); Mean Corpuscular Volume 102.8 fL (83.0-100.0); Mean Platelet Volume 11.4 fL (9.4-12.4); Monocytes # 0.6 K/mcL (0.0-1.3); Monocytes % 10.8 %; Neutrophils # 4.1 K/mcL (1.6-8.9); Platelet Count 311 K/mcL (140-400); Red Blood Count 2.47 M/mcL (4.19-5.50); Red Cell Distribution Width 16.6 % (11.5-14.5); Segmented Neutrophils % 74.3 %
[2017-06-11 17:14] LABS: Prothrombin Time 10.3 Seconds (9.4-12.1)
[2017-06-11 17:16] LABS: Activated Partial Thrombo Time 32.2 Seconds (26.0-36.0)
[2017-06-11 17:21] LABS: BUN/Creatinine Ratio 19 (6-26); Blood Urea Nitrogen 16 mg/dL (8-26); Calcium 8.5 mg/dL (8.6-10.8); Carbon Dioxide 26 mEq/L (19-29); Chloride 110 mEq/L (98-109); Glucose 171 mg/dL (70-99); Osmolality,Calculated 301 (280-300); Potassium 4.4 mEq/L (3.5-4.5); Sodium 143 mEq/L (136-145); eGFR For African Americans > 60 (> 60); eGFR For Non-African Americans > 60 (> 60)
[2017-06-11 17:27] LABS: Hemoglobin 7.6 g/dL (12.9-16.9)
[2017-06-11] MEDS ORDERED: 0.9 % Sodium Chloride 250 ML ONE (18:33)
--- NOTE | 2017-06-11 19:41 | Internal Med History&Physical ---
<Saroj Rodriguez Santana - Last Filed: 06/11/17 21:24> Date of Encounter: 06/11/17 Time of Encounter: 19:39 Assessment and Plan (1) Acute blood loss anemia Current visit: Yes Status: Acute Mr. 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 Patient received 2 units PRBCs 2 days ago after hemoglobin of 6.8. Current hemoglobin is 7.8 and will receive 1 unit PRBCs. Patient has risk factors such as coronary artery disease which would have a goal hemoglobin greater than 8.0. - No noted acute bleeding per rectum. - Patient has been seen at previous visits by palliative care and family had chosen not to go into hospice at that time. - Macrocytic anemia, patient has a history of B12 folate deficiencies. Plan: - Stool occult - Transfuse 1 unit PRBCs - Recheck H&H at midnight - Maintenance fluids at 100 mls/ hour (2) Von Willebrand disease Current visit: No Status: Chronic Known history of type II a von Willebrand's disorder. Significant family history a son and grandson both have von Willebrand's disorder. Patient is a history of difficult to control bleeding. Patient is a history of recurrent GI bleeds. Continue DDAVP. Sandostatin (3) Severe dementia Current visit: No Status: Chronic Severe dementia. Patient has difficulty with providing useful information (4) Diabetes Current visit: No Status: Chronic Known type 2 diabetes. Hyperglycemic with glucose at 171 at the time of admission. Plan: - Before meals at bedtime glucose checks - Low-dose sliding scale insulin Qualifiers: Diabetes mellitus type: type 2 Diabetes mellitus complication status: without complication Diabetes mellitus medical terminologist insulin use: without detention use Qualified Code(s): E11.9 - Type 2 diabetes mellitus without complications (5) DVT prophylaxis Current visit: Yes Status: Acute SCDs Internal Medicine - H&P: HPI Chief complaint: Abnormal labs Admitted From: Emergency Dept Plans for Post Hospital Care: Home History of present illness: Mr. Mejia is a 86 year old male with advanced dementia, type IIA von Willebrand's disease, atrial fibrillation, heart failure, recurrent GI bleeds with small bowel angiodysplasia and coronary artery disease was sent to the emergency department for further evaluation and treatment after his lab work demonstrated a hemoglobin of 7.6. Mr. Mejia has advanced dementia and is unable to speak for himself at this time. There is no family members at bedside and information was obtained from emergency room documentation and chart review. Mr. Mejia had a hemoglobin of 6.82 days ago for which she received 2 units PRBCs, and today his hemoglobin is 7.6 which is not as expected post transfusion. It is suspected that he has a slow bleed and hematology was consulted and recommended at least 1 more unit of PRBCs. Mr. Mejia has a history of recurrent GI bleeds requiring PRBC transfusion. Past Med Surg Social Fam HX - Past Medical History Medical history: arthritis, atrial fibrillation, coronary artery disease, dementia, diabetes, GERD, hypertension, myocardial infarction, other Psychiatric history: anxiety, other - Social History Smoking Status: Former smoker Smokeless Tobacco Status: No Alcohol use: none Drug use: none - Family History Mother Living Status: Hx Family Cardiac Disorders: Yes Hx Family Respiratory Disorders: No Hx Family Cancer: Yes (liver cancer) Hx Family Endocrine Disorder: No Hx Family Neuromuscular Disorders: No Hx Family Neurologic Disorders: No Hx Family HEENT Disorders: Yes (thinks so) Hx Family Autoimmune Disorders: No Father Living Status: Hx Family Cardiac Disorders: Yes (HTN) Hx Family Respiratory Disorders: No Hx Family Cancer: No Hx Family GI Disorders: No Hx Family Endocrine Disorder: Yes (DM) Hx Family Neuromuscular Disorders: No Hx Family Neurologic Disorders: No Hx Family HEENT Disorders: No Hx Family Autoimmune Disorders: No Son Living Status: Still Living Hx Family Cardiac Disorders: Yes (htn) Internal Medicine - H&P: Meds Tranexamic Acid [Lysteda] 1,300 mg PO BID 60 Days 07/24/15 [Rx] Acetaminophen [Tylenol] 325 mg PO Q4H PRN 05/13/16 [History] Ascorbate Calcium [Vitamin C] 500 mg PO BID 05/13/16 [History] Cyanocobalamin (B-12) [Vitamin B12] 1,000 mcg IM QMONTH 05/13/16 [History] Cyanocobalamin (Vitamin B-12) [Vitamin B-12] 1,000 mcg PO DAILY 05/13/16 [ History] Desmopressin Acetate [Ddavp] 1 spray NS MOTH 05/13/16 [History] Docusate [Colace] 100 mg PO BID 05/13/16 [History] FentaNYL PATCH [Duragesic] 12 mcg TD Q72H 05/13/16 [History] Ferrous Sulfate [Iron Supplement] 325 mg PO DAILY 05/13/16 [History] Hydralazine HCl 50 mg PO Q8H 05/13/16 [History] Polyethylene Glycol 3350 [MiraLAX] 17 gm PO DAILY 05/13/16 [History] Tamsulosin [Flomax] 0.4 mg PO HS 05/13/16 [History] Travoprost [Travatan Z] 1 drop BOTH EYES BID 05/13/16 [History] Omeprazole [PriLOSEC] 40 mg PO BIDAC capsule 05/18/16 [Rx] LORazepam [Ativan] 0.5 mg PO 1600 09/28/16 [History] Pregabalin [Lyrica] 75 mg PO BID 09/28/16 [History] Timolol Maleate 0.5% 1 drop LEFT EYE BID 01/27/17 [History] Acetaminophen [Tylenol] 500 mg PO 0800,1600,2000 06/11/17 [History] LORazepam [Ativan] 0.5 mg PO BID PRN 06/11/17 [History] Melatonin [Melatin] 6 mg PO HS PRN 06/11/17 [History] Octreotide Acetate,Mi-Spheres [Sandostatin Lar Depot] 10 mg IM QMONTH 06/11/17 [ History] Allergies Penicillins Allergy (Verified 07/04/15 12:33) Swelling of Lip/Tongue/Throat ibuprofen Adverse Reaction (Verified 05/13/16 15:45) Unknown List from [facility] NSAIDS (Non-Steroidal Anti-Inflamma Adverse Reaction (Verified 05/13/16 15:45) Unknown List from [facility] salicylates Adverse Reaction (Verified 05/13/16 15:45) Unknown List from [facility] ROS unobtainable: due to mental status All Systems PM: A 10-system review of systems was performed and is negative for pertinent findings except as documented above in the HPI. - Constitutional Vitals: Temp Pulse Resp BP Pulse Ox 99.2 F 59 16 139/66 98 06/11/17 15:46 06/11/17 17:43 06/11/17 17:43 06/11/17 17:43 06/11/17 17:43 Exam: General: Patient alert, awake, oriented to self, does not answer questions appropriately. no acute distress HEENT: Normocephalic, atraumatic, oral mucosa moist, neck supple trachea midline no palpable lymphadenopathy, no thyromegaly. Chest: Symmetric bilateral correlating with respiratory effort, effort nonlabored. Cardiac: Regular rate and rhythm, positive S1 and S2. no bruits appreciated bilateral carotids, Radial pulses 2+ bilateral, posterior tibial and dorsal pedal pulses 2+ bilateral. Respiratory: Clear to auscultation all lung jones Abdomen: Soft, nontender, positive bowel sounds, no palpable masses appreciated on examination Extremities: Symmetric bilateral, bilateral lower extremities without erythema or edema patient moving all 4 extremities spontaneously. Neurologic: No focal deficits appreciated on examination. Face symmetric, muscle strength symmetric bilateral upper and lower extremities. Internal Med - H&P Results - Labs CBC & Chem 7: 06/11/17 16:24 06/11/17 16:24 Labs: Short CBC 06/11/17 Range/Units 16:24 WBC 5.5 (4.3-11.1) K/mcL Hgb 7.6 L (12.9-16.9) g/dL Hct 25.4 L (37.5-50.1) % Plt Count 311 (140-400) K/mcL Neutrophils # 4.1 (1.6-8.9) K/mcL BMP 06/11/17 16:24 Sodium 143 Potassium 4.4 Chloride 110 H Carbon Dioxide 26 BUN 16 Creatinine 0.84 Glucose 171 H Calcium 8.5 L <Dino Henderson - Last Filed: 06/12/17 05:37> Date of Encounter: 06/11/17 Internal Medicine - H&P: HPI History of present illness: Mr. Mejia is a 86 year old male All Systems PM: A 10-system review of systems was performed and is negative for pertinent findings except as documented above in the HPI. - Constitutional Vitals: Temp Pulse Resp BP Pulse Ox 97.4 F L 69 14 184/94 97 06/12/17 04:18 06/12/17 04:18 06/12/17 04:18 06/12/17 04:18 06/12/17 04:18 Internal Med - H&P Results - Labs CBC & Chem 7: 06/12/17 01:57 06/11/17 16:24 Labs: Short CBC 06/12/17 Range/Units 01:57 WBC 6.0 (4.3-11.1) K/mcL Hgb 8.4 L (12.9-16.9) g/dL Hct 27.5 L (37.5-50.1) % Plt Count 293 (140-400) K/mcL Neutrophils # 4.4 (1.6-8.9) K/mcL - Attending Attestation I examined this patient and my medical decision-making was reviewed with the Resident Physician. I agree with the documented findings, disposition and treatment plan as described. Dino Henderson MD, MPH Hospitalist
[2017-06-11] MEDS ORDERED: Naloxone 0.4 MG/ML INJ IVP PRN (21:39)
[2017-06-11] MEDS ORDERED: Ondansetron ODT 4 MG TAB.RAPDIS SL PRN (21:39)
[2017-06-11] MEDS ORDERED: Acetaminophen 325 MG TABLET PO PRN (21:39)
[2017-06-11] MEDS ORDERED: Melatonin 3 MG TABLET PO PRN (21:41)
[2017-06-11] MEDS ORDERED: *HR* LORazepam 0.5 MG TABLET PO PRN (21:41)
[2017-06-11] MEDS ORDERED: 0.9 % Sodium Chloride 1,000 ML IVC SCH (21:45)
[2017-06-11] MEDS ORDERED: OCTREOTIDE IM SCH (21:45)
[2017-06-11] MEDS ORDERED: Dextrose Gel 15 GM PO PRN ×2 (21:56)
[2017-06-11] MEDS ORDERED: D5% in Water 1,000 ML IVC PRN (21:56)
[2017-06-11] MEDS ORDERED: *HR* Dextrose 50 % in Water (Syg) 50 ML SYRINGE IVP PRN (21:56)
[2017-06-11] MEDS: hydrALAZINE 25 MG TABLET PO SCH (22:59)
[2017-06-11] MEDS: *HR* FentaNYL PATCH 12 MCG PATCH TD SCH (23:00)
[2017-06-12 02:14] LABS: Basophils # 0.1 K/mcL (0.0-0.2); Basophils % 0.8 %; Eosinophils # 0.2 K/mcL (0.0-0.6); Eosinophils % 2.6 %; Hematocrit 27.5 % (37.5-50.1); Hemoglobin 8.4 g/dL (12.9-16.9); Immature Granulocytes % 0.5 % (0-4); Lymphocytes # 0.6 K/mcL (0.6-4.6); Lymphocytes % 10.4 %; Mean Corpuscular HGB Conc 30.5 g/dL (31.6-35.5); Mean Corpuscular Volume 98.2 fL (83.0-100.0); Mean Platelet Volume 10.4 fL (9.4-12.4); Monocytes # 0.8 K/mcL (0.0-1.3); Monocytes % 12.4 %; Neutrophils # 4.4 K/mcL (1.6-8.9); Platelet Count 293 K/mcL (140-400); Red Cell Distribution Width 16.5 % (11.5-14.5); Segmented Neutrophils % 73.3 %
[2017-06-12] MEDS: hydrALAZINE 25 MG TABLET PO SCH ×3 (05:53→21:34)
[2017-06-12] MEDS: Insulin LISPRO 300 UNITS/3 ML VIAL SQ SCH ×4 (08:35→21:35)
[2017-06-12] MEDS: Pregabalin 75 MG CAPSULE PO SCH ×2 (08:37→21:34)
[2017-06-12] MEDS: TRANEXAMIC ACID 1300 MG PO SCH ×2 (08:37→21:35)
--- NOTE | 2017-06-12 09:28 | Oncology Inp Consult Note ---
Date of Encounter: 06/12/17 Time of Encounter: 10:05 Assessment and Plan (1) Acute blood loss anemia Status: Acute Assessment and plan: His anemia is consistent with chronic blood loss anemia. There is not evidence of acute bleeding. His hemoglobin improved from 7.7 to 8.4 as expected after receiving one PRBC. - In view of his risk factors ( including history of CAD, and slow GIB) it would be reasonable to increase his threshold for transfusions to Hb at or above 8 g/dl. - Continue vitamin B12 replacement for history of Vitamin B12 deficiency. - Monitor CBC daily. - Check iron panel, including ferritin. If poor po of iron, may need parenteral iron to replenish storages. (2) Von Willebrands disease Status: Chronic Assessment and plan: Currently there is not evidence of acute bleeding. There is not indication to repeat von willebrand panel at this time. - Continue monthly sandostatin, tranesamic acid 1300 mg PO BID and DDAVP intranasal twice weekly. - Upon discharge, monitor CBC weekly - Follow up with chemical analyst as outpatient. - Data of Consult Requesting Physician: Joy Blake CNP Primary Care Provider: PCP NO - Consult Narrative Reason for consult: chronic anemia and VWD History of present illness: Mr. Mejia is a 86 year old male SNF resident with history of type IIA VWD and chronic anemia due to recurrent GI bleeds, admitted due to worsening anemia. Mr. Mejia has advanced dementia and is unable to provide history. Apparently there has not been an macroscopic episode of GIB recently, but his red cell counts failed to increased appropriately after 2 units of blood transfused a few days ago. He has been seen in the past by Dr. Morgan and was seen as inpatient by hematology for similar complaints on his admission from March 2017 . As dscribed in prior notes, he has a well documented personal and familiar history of VWD, with his son , daughter and grandson with documented history of VWD. His home treatment includes intranasal DDAVD twice weekly ( that he has been using for several years) with apparent good response and tranexamic acid 1300 mg BID . During episodes of bleeding in the past, prior treatments have included Humate-P periprocedurally, and additional injections of DDAVP to control bleeding. He has received amicar in the past due tu episode of hematuria. He was treated with DDAVP and Humate-P in November 2014 for surgical coverage during circumcision. His prior DDAVP challege test has been consistent with a significant response to DDAVP. ON Oct 11, 2014 he was started on amicar 1 gr BIF after extensive discussion of pros and cons, to decrease the frequency of GIB and blood transfusions. His treatment also include monthly sandostatin since July 03, 2016 due to recurrent GIB. He also has a history of AFib, but not anticoagulated due to GIB. His mental status during the visit seems to be at baseline, minimally verbal, disoriented, but following commands and answering basic question. He has history of chronic anemia due to recurrent GI bleeding. prior work up included colonoscopies that have failed to demonstrate the source of bleeding. As per records, he has documented history of small bowel angiodysplasia. At this time there is not clinical evidence of acute bleeding. He denies pain or other acute complaints. Past Med Surg Social Fam HX - Past Medical History Medical history: arthritis, atrial fibrillation, coronary artery disease, dementia, diabetes, GERD, hypertension, myocardial infarction, other Psychiatric history: anxiety, other - Social History Smoking Status: Former smoker Smokeless Tobacco Status: No Alcohol use: none Drug use: none - Family History Mother Living Status: Hx Family Cardiac Disorders: Yes Hx Family Respiratory Disorders: No Hx Family Cancer: Yes (liver cancer) Hx Family Endocrine Disorder: No Hx Family Neuromuscular Disorders: No Hx Family Neurologic Disorders: No Hx Family HEENT Disorders: Yes (thinks so) Hx Family Autoimmune Disorders: No Father Living Status: Hx Family Cardiac Disorders: Yes (HTN) Hx Family Respiratory Disorders: No Hx Family Cancer: No Hx Family GI Disorders: No Hx Family Endocrine Disorder: Yes (DM) Hx Family Neuromuscular Disorders: No Hx Family Neurologic Disorders: No Hx Family HEENT Disorders: No Hx Family Autoimmune Disorders: No Son Living Status: Still Living Hx Family Cardiac Disorders: Yes (htn) Medications and Allergies Tranexamic Acid [Lysteda] 1,300 mg PO BID 60 Days 07/24/15 [Rx] Acetaminophen [Tylenol] 325 mg PO Q4H PRN 05/13/16 [History] Ascorbate Calcium [Vitamin C] 500 mg PO BID 05/13/16 [History] Cyanocobalamin (B-12) [Vitamin B12] 1,000 mcg IM QMONTH 05/13/16 [History] Cyanocobalamin (Vitamin B-12) [Vitamin B-12] 1,000 mcg PO DAILY 05/13/16 [ History] Desmopressin Acetate [Ddavp] 1 spray NS MOTH 05/13/16 [History] Docusate [Colace] 100 mg PO BID 05/13/16 [History] FentaNYL PATCH [Duragesic] 12 mcg TD Q72H 05/13/16 [History] Ferrous Sulfate [Iron Supplement] 325 mg PO DAILY 05/13/16 [History] Hydralazine HCl 50 mg PO Q8H 05/13/16 [History] Polyethylene Glycol 3350 [MiraLAX] 17 gm PO DAILY 05/13/16 [History] Tamsulosin [Flomax] 0.4 mg PO HS 05/13/16 [History] Travoprost [Travatan Z] 1 drop BOTH EYES BID 05/13/16 [History] Omeprazole [PriLOSEC] 40 mg PO BIDAC capsule 05/18/16 [Rx] LORazepam [Ativan] 0.5 mg PO 1600 09/28/16 [History] Pregabalin [Lyrica] 75 mg PO BID 09/28/16 [History] Timolol Maleate 0.5% 1 drop LEFT EYE BID 01/27/17 [History] Acetaminophen [Tylenol] 500 mg PO 0800,1600,2000 06/11/17 [History] LORazepam [Ativan] 0.5 mg PO BID PRN 06/11/17 [History] Melatonin [Melatin] 6 mg PO HS PRN 06/11/17 [History] Octreotide Acetate,Mi-Spheres [Sandostatin Lar Depot] 10 mg IM QMONTH 06/11/17 [ History] Allergies Penicillins Allergy (Verified 07/04/15 12:33) Swelling of Lip/Tongue/Throat ibuprofen Adverse Reaction (Verified 05/13/16 15:45) Unknown List from [facility] NSAIDS (Non-Steroidal Anti-Inflamma Adverse Reaction (Verified 05/13/16 15:45) Unknown List from [facility] salicylates Adverse Reaction (Verified 05/13/16 15:45) Unknown List from [facility] ROS unobtainable: due to mental status (advance dementia), other (ROS not reliable due to advance dementia) Oncology - Exam - Constitutional Vitals: Temp Pulse Resp BP Pulse Ox 97.8 F 75 16 176/98 97 06/12/17 07:07 06/12/17 07:07 06/12/17 07:07 06/12/17 07:07 06/12/17 07:07 - Head Head exam: Present: normal inspection - ENT ENT exam: Present: normal oropharynx - Neck Neck exam: Present: normal inspection - Respiratory Respiratory exam: Present: CTAB - Cardiovascular Cardiovascular exam: Present: +S1 - GI/Abdominal GI/Abdominal exam: Present: normal bowel sounds - Extremities Exam Extremities exam: Present: normal inspection - Neurological Exam Additional comments: No focal neurological deficits. - Psychiatric Additional comments: Oriented by person only. He thinks is at home and could not answer who was the current [place] president. Oncology - Results - Labs Labs: Short CBC 06/12/17 Range/Units 01:57 WBC 6.0 (4.3-11.1) K/mcL Hgb 8.4 L (12.9-16.9) g/dL Hct 27.5 L (37.5-50.1) % Plt Count 293 (140-400) K/mcL Neutrophils # 4.4 (1.6-8.9) K/mcL Consult Discharge Plan - Plan Referrals: Camelia Corado MD [Non-Partnered Physician] -
--- NOTE | 2017-06-12 10:47 | Internal Med Progress Note ---
Date of Encounter: 06/12/17 Time of Encounter: 09:50 - Assessment and plan (1) Acute blood loss anemia Current Visit: Yes Status: Acute Assessment and plan: Mr. 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 Patient received 2 units PRBCs 2 days ago after hemoglobin of 6.8. Current hemoglobin is 7.8 and will receive 1 unit PRBCs. Patient has risk factors such as coronary artery disease which would have a goal hemoglobin greater than 8.0. If Iron level is low, pt may need parenteral iron to replace if poor po absorption. Continue Vitamin b12 replacement for history of deficiency. Continue to monitor CBC H and H ordered q6h today Iron studies pending. (2) Von Willebrand disease Current Visit: Yes Status: Chronic Assessment and plan: Currently there is no evidence of bleeding. Most possibly, pt has slow GI bleed. Continue Sandostatin, Tranesamic acid 1300mg po bid and DDAVP intranasal twice weekly. Monitor CBC weekly after discharge Follow up with hematology outpatient. (3) DVT prophylaxis Current Visit: Yes Status: Acute Assessment and plan: SCD. Due to blood loss anemia, no pharmacologic prophylaxis is recommended. (4) Severe dementia Current Visit: No Status: Chronic (5) Diabetes Current Visit: No Status: Chronic Assessment and plan: Sliding scale insulin, Accu-Cheks before meals at bedtime, diabetic diet. Qualifiers: Diabetes mellitus type: type 2 Diabetes mellitus complication status: without complication Diabetes mellitus vermin exterminator insulin use: without chcf use Qualified Code(s): E11.9 - Type 2 diabetes mellitus without complications - Time Spent With Patient less than 15 minutes - Subjective Interval history: Pt was seen and assessed at 0950. He is resting quietly in his room. He does not answer questions and appears to be [place]. He yells out that he doesn't know why I'm in there and does not understand why I have to touch him. His physical exam is unremarkable. We will continue to monitor H and H today and hydrate with IVF. - Constitutional Vitals: Temp Pulse Resp BP Pulse Ox 97.8 F 75 16 176/98 97 06/12/17 07:07 06/12/17 07:07 06/12/17 07:07 06/12/17 07:07 06/12/17 07:07 General appearance: Present: no acute distress. Absent: answers questions appropriately - Head Head exam: Present: normal inspection - Eye Eye exam: Present: normal appearance, conjuntiva pink - ENT ENT exam: Present: normal exam - Respiratory Respiratory exam: Present: CTAB. Absent: chest wall tenderness, respiratory distress, rhonchi, wheezes - Cardiovascular Cardiovascular exam: Present: RRR, +S1, +S2. Absent: diastolic murmur, systolic murmur - GI/Abdominal GI/Abdominal exam: Present: distended, soft. Absent: tenderness - Extremities Exam Extremities exam: Present: normal inspection, warm, radial pulses palpable and symetrical. Absent: pedal edema, tenderness - Neurological Exam Neurological exam: Present: alert. Absent: oriented X3, speech deficit Internal Medicine: Result - Labs CBC & Chem 7: 06/12/17 01:57 06/11/17 16:24 Labs: Short CBC 06/12/17 Range/Units 01:57 WBC 6.0 (4.3-11.1) K/mcL Hgb 8.4 L (12.9-16.9) g/dL Hct 27.5 L (37.5-50.1) % Plt Count 293 (140-400) K/mcL Neutrophils # 4.4 (1.6-8.9) K/mcL - ABG Interpretation ABG results: PT/INR, D-dimer PT 10.3 Seconds (9.4-12.1) 06/11/17 16:24 Consult Discharge Plan - Plan Referrals: Camelia Corado MD [Non-Partnered Physician] -
[2017-06-12] MEDS: Latanoprost 2.5 ML BOTTLE BOTH EYES SCH ×2 (11:15→21:41)
[2017-06-12 11:44] LABS: Hematocrit 27.6 % (37.5-50.1); Hemoglobin 8.5 g/dL (12.9-16.9)
[2017-06-12 15:44] LABS: % Iron Saturation 8 % (20-55); Iron 25 mcg/dL (65-175); Transferrin 230 mg/dL (174-364)
[2017-06-12 16:04] LABS: Ferritin 24 ng/ml (22-275)
[2017-06-12 18:33] LABS: Hematocrit 26.4 % (37.5-50.1); Hemoglobin 8.1 g/dL (12.9-16.9)
[2017-06-12 22:31] LABS: Hematocrit 24.6 % (37.5-50.1); Hemoglobin 7.6 g/dL (12.9-16.9)
[2017-06-13 04:02] LABS: Bilirubin,Urine Negative (Negative); Blood,Urine Large (Negative); Clarity,Urine Cloudy (Clear); Color,Urine Yellow (Yellow); Glucose,Urine (UA) Normal (Normal); Ketones,Urine 15 mg/dL (Negative); Leukocyte Esterase,Urine Large (Negative); Nitrite,Urine Positive (Negative); PH,Urine 5.5 pH Units (5.0-8.0); Protein,Urine 30 mg/dL (Neg-Trace); Specific Gravity,Urine 1.022 (1.010-1.025); Urobilinogen,Urine Normal (Normal)
[2017-06-13 04:04] LABS: Bacteria,Urine Moderate per hpf (None-Few); Hyaline Casts,Urine Few per lpf (None-Few); RBC,Urine TNTC per hpf (0-3); Squamous Epithelial Cell,Urine Moderate per lpf (None-Few); WBC,Urine 30-50 per hpf (0-3)
[2017-06-13] MEDS: hydrALAZINE 25 MG TABLET PO SCH ×3 (05:45→21:12)
[2017-06-13 06:42] LABS: Basophils % 0.5 %; Eosinophils # 0.1 K/mcL (0.0-0.6); Eosinophils % 1.4 %; Hematocrit 23.1 % (37.5-50.1); Immature Granulocytes % 0.9 % (0-4); Immature Platelets 4.7 % (1.1-6.1); Lymphocytes # 0.6 K/mcL (0.6-4.6); Lymphocytes % 10.5 %; Mean Corpuscular HGB Conc 30.3 g/dL (31.6-35.5); Mean Corpuscular Hemoglobin 29.9 pg (28.0-33.3); Mean Corpuscular Volume 98.7 fL (83.0-100.0); Mean Platelet Volume 10.8 fL (9.4-12.4); Monocytes # 0.6 K/mcL (0.0-1.3); Monocytes % 10.7 %; Neutrophils # 4.3 K/mcL (1.6-8.9); Platelet Count 295 K/mcL (140-400); Red Blood Count 2.34 M/mcL (4.19-5.50); Red Cell Distribution Width 16.6 % (11.5-14.5)
[2017-06-13] MEDS: Insulin LISPRO 300 UNITS/3 ML VIAL SQ SCH ×4 (07:35→21:14)
[2017-06-13 07:37] LABS: BUN/Creatinine Ratio 35 (6-26); Calcium 8.2 mg/dL (8.6-10.8); Carbon Dioxide 27 mEq/L (19-29); Chloride 109 mEq/L (98-109); Glucose 127 mg/dL (70-99); Osmolality,Calculated 299 (280-300); Potassium 3.6 mEq/L (3.5-4.5); Sodium 141 mEq/L (136-145); eGFR For African Americans > 60 (> 60); eGFR For Non-African Americans > 60 (> 60)
[2017-06-13 07:38] LABS: Blood Urea Nitrogen 29 mg/dL (8-26)
[2017-06-13] MEDS: Pregabalin 75 MG CAPSULE PO SCH ×2 (07:59→21:13)
[2017-06-13] MEDS: TRANEXAMIC ACID 1300 MG PO SCH ×2 (08:00→21:13)
[2017-06-13] MEDS: Latanoprost 2.5 ML BOTTLE BOTH EYES SCH ×2 (08:01→21:14)
[2017-06-13] MEDS ORDERED: Levofloxacin 750 MG/150 ML 750 MG/150 ML BAG IVPB SCH (09:00)
[2017-06-13] MEDS ORDERED: 0.9 % Sodium Chloride 250 ML ONE (10:07)
--- NOTE | 2017-06-13 11:53 | Internal Med Progress Note ---
Date of Encounter: 06/13/17 Time of Encounter: 11:05 - Assessment and plan (1) Acute blood loss anemia Current Visit: Yes Status: Acute Assessment and plan: Stool occult blood pending still. Pt has had multiple dark, tarry stools. Hgb 7.0 this a.m. Will transfuse 1 unit PRBCs and continue to monitor H and H. (2) Von Willebrand disease Current Visit: Yes Status: Chronic Assessment and plan: Pt history and family history. History of GI bleeds. Continue DDAVP and Sandostatin (3) DVT prophylaxis Current Visit: Yes Status: Acute Assessment and plan: SCDs. (4) Severe dementia Current Visit: No Status: Chronic Assessment and plan: Chronic. Continue to monitor pt closely for acute changes and falls. (5) Diabetes Current Visit: No Status: Chronic Assessment and plan: Sliding scale insulin, Accu-Cheks before meals at bedtime, diabetic diet. Qualifiers: Diabetes mellitus type: type 2 Diabetes mellitus complication status: without complication Diabetes mellitus intermediate insulin use: without superintendent marine oil terminal use Qualified Code(s): E11.9 - Type 2 diabetes mellitus without complications (6) UTI (urinary tract infection) Current Visit: Yes Status: Acute Assessment and plan: Urine foul-smelling and dark. Pt is incontinent. UA revealed Large amt leukocyte esterase, TNTC RBCs, 30-50 WBCs, and Moderate Bacteria. Culture is pending. Prior sensitivities reviewed, pt has PCN allergy. Resistant to Fluoroquinolones. Will start Bactrim until final culture and sensitivity are available. Pt is afebrile, has no leukocytosis, no tachycardia. Will continue to monitor. Qualifiers: Urinary tract infection type: acute cystitis Hematuria presence: with hematuria Qualified Code(s): N30.01 - Acute cystitis with hematuria - Time Spent With Patient less than 15 minutes - Subjective Interval history: Pt was seen and assessed at 1105. He is resting quietly in his room. Pt seems to be more relaxed today and answers questions. He denies pain and states that he feels better. His physical exam is unremarkable. PRBCs are transfusing. - Constitutional Vitals: Temp Pulse Resp BP Pulse Ox 98.1 F 91 16 117/75 99 06/13/17 11:09 06/13/17 11:09 06/13/17 11:06/13/17 11:09 06/13/17 11:09 General appearance: Present: cooperative, pleasant, no acute distress. Absent: answers questions appropriately - Head Head exam: Present: normal inspection - Eye Eye exam: Present: normal appearance, conjuntiva pink - ENT ENT exam: Present: mucous membranes moist, normal exam, normal external ear exam - Respiratory Respiratory exam: Present: CTAB. Absent: rales, respiratory distress, rhonchi, wheezes - Cardiovascular Cardiovascular exam: Present: RRR, +S1, +S2. Absent: diastolic murmur, systolic murmur - GI/Abdominal GI/Abdominal exam: Present: normal bowel sounds, soft. Absent: hepatomegaly - Extremities Exam Extremities exam: Present: warm, radial pulses palpable and symetrical. Absent : pedal edema - Neurological Exam Neurological exam: Present: alert, oriented X3. Absent: facial droop, speech deficit - Skin Skin exam: Present: dry, intact, normal color, warm. Absent: rash Internal Medicine: Result - Labs CBC & Chem 7: 06/13/17 05:40 06/13/17 06:15 Labs: Short CBC 06/12/17 06/12/17 06/13/17 Range/Units 18:20 22:00 05:40 WBC 5.6 (4.3-11.1) K/mcL Hgb 8.1 L 7.6 L 7.0 L (12.9-16.9) g/dL Hct 26.4 L 24.6 L 23.1 L (37.5-50.1) % Plt Count 295 (140-400) K/mcL Neutrophils # 4.3 (1.6-8.9) K/mcL BMP 06/13/17 06:15 Sodium 141 Potassium 3.6 Chloride 109 Carbon Dioxide 27 BUN 29 H D Creatinine 0.83 Glucose 127 H Calcium 8.2 L Urine 06/13/17 Range/Units 03:45 Urine Color Yellow (Yellow) Urine Clarity Cloudy A (Clear) Urine pH 5.5 (5.0-8.0) pH Units Ur Specific [place] 1.022 (1.010-1.025) Urine Protein 30 H (Neg-Trace) mg/dL Urine Glucose (UA) Normal (Normal) mg/dL - ABG Interpretation ABG results: PT/INR, D-dimer PT 10.3 Seconds (9.4-12.1) 06/11/17 16:24 Consult Discharge Plan - Plan Referrals: Camelia Corado MD [Non-Partnered Physician] -
[2017-06-13] MEDS: Sulfamethoxazole/Trimeth DS 1 EACH TABLET PO SCH ×2 (14:32→21:13)
--- NOTE | 2017-06-13 15:07 | Oncology Inp Progress Note ---
Date of Encounter: 06/13/17 Time of Encounter: 14:48 (1) Acute blood loss anemia Current Visit: Yes Status: Acute Assessment and plan: Mild drop in red cell counts in despite of receiving blood transfusion yesterday. I agree with blood transfusion today, repeat CBC in AM. I would recommend to repeat von willebrand panel ( last time tested on 03/30/17 with low VW antigen and activity values). - Give an additional dose of DDAVP today ( and continue the maintenance dose of 1 spray 0.1 ml twice weekly) - Follow up VW levels in AM and adjust dose of DDAVP if appropriate. - Continue tranexamic acid 1300 mg BID. - In view of his risk factors ( including history of CAD, and slow GIB) it would be reasonable to increase his threshold for transfusions to Hb at or above 8 g/dl. - Continue vitamin B12 replacement for history of Vitamin B12 deficiency. - Iron pane revealed normal low normal values of ferritin and low values of serum iron. Increase ferrous sulfate to 325 mg BID. Repeat Iron panel in 2 weeks. If there is poor PO absortion, consider parenteral iron. - Monitor CBC daily. Code(s): D62 - Acute posthemorrhagic anemia SNOMED Code(s): 393519911 (2) Von Willebrands disease Current Visit: No Status: Chronic Assessment and plan: -Management as described above. - Continue monthly sandostatin. - Upon discharge, monitor CBC weekly - Follow up with morning show producer as outpatient. Code(s): D68.0 - Von Willebrand's disease SNOMED Code(s): 331424662 Oncology: Subj Interval history: " leave me alone". Denies complaints. - Constitutional Vitals: Vital Signs Temp Pulse Resp BP Pulse Ox 06/13/17 14:05 97.7 F 79 16 130/81 98 06/13/17 11:09 98.1 F 91 16 117/75 99 06/13/17 10:39 97.8 F 86 17 102/65 97 06/13/17 10:18 97.8 F 86 17 102/65 97 06/13/17 10:12 97.8 F 86 17 112/69 96 06/13/17 06:54 98.1 F 74 13 121/78 98 06/13/17 03:29 97.8 F 83 18 124/77 96 06/12/17 22:43 97.7 F 83 16 123/74 96 06/12/17 18:49 98.4 F 91 16 128/84 96 06/12/17 15:09 97.8 F 87 16 148/87 97 Intake and Output 06/12/17 06/13/17 06/13/17 23:59 07:59 15:59 Intake Total 950 / 950 Balance 950 / 950 Intake: Oral 600 / 600 Blood Product 350 / 350 Rbcs Leuko Poor As-1 350 / 350 Unit [id number] Other: Meal Lunch Percent of Meal Consumed 75% # Urine Diapers 1 1 Weight 78.744 kg Blood Glucose* 141 139 112 Patient Weight 06/13/17 23:59 Weight 78.744 kg - Head Head exam: Present: normal inspection - Respiratory Respiratory exam: Present: CTAB - Cardiovascular Cardiovascular exam: Present: +S1 - GI/Abdominal GI/Abdominal exam: Present: normal bowel sounds - Extremities Exam Extremities exam: Present: normal inspection. Absent: tenderness - Neurological Exam Additional comments: oriented x 1 - Psychiatric Additional comments: flat affect Oncology: Obj Data - Labs CBC & Chem 7: 06/13/17 05:40 06/13/17 06:15 Labs: Laboratory Results - last 24 hr 06/12/17 06/12/17 06/12/17 07:10 11:13 15:20 WBC RBC Hgb Hct MCV MCH MCHC RDW Plt Count MPV Immature Gran % Seg Neutrophils % Lymphocytes % Monocytes % Eosinophils % Basophils % Neutrophils # Lymphocytes # Monocytes # Eosinophils # Basophils # Immature Plt Fraction Sodium Potassium Chloride Carbon Dioxide BUN Creatinine Est GFR ( Amer) Est GFR (Non-Af Amer) BUN/Creatinine Ratio Glucose POC Glucose 128 H 138 H Calculated Osmolality Calcium Iron 25 L % Saturation 8 L Transferrin 230 Ferritin 24 Urine Color Urine Clarity Urine pH Ur Specific [place] Urine Protein Urine Glucose (UA) Urine Ketones Urine Blood Urine Nitrite Urine Bilirubin Urine Urobilinogen Ur Leukocyte Esterase Urine Microscopic RBC Urine Microscopic WBC Ur Squamous Epith Cells Urine Bacteria Hyaline Casts Ur Culture Indicated? 06/12/17 06/12/17 06/12/17 16:11 18:20 20:42 WBC RBC Hgb 8.1 L Hct 26.4 L MCV MCH MCHC RDW Plt Count MPV Immature Gran % Seg Neutrophils % Lymphocytes % Monocytes % Eosinophils % Basophils % Neutrophils # Lymphocytes # Monocytes # Eosinophils # Basophils # Immature Plt Fraction Sodium Potassium Chloride Carbon Dioxide BUN Creatinine Est GFR ( Amer) Est GFR (Non-Af Amer) BUN/Creatinine Ratio Glucose POC Glucose 115 H 141 H Calculated Osmolality Calcium Iron % Saturation Transferrin Ferritin Urine Color Urine Clarity Urine pH Ur Specific [place] Urine Protein Urine Glucose (UA) Urine Ketones Urine Blood Urine Nitrite Urine Bilirubin Urine Urobilinogen Ur Leukocyte Esterase Urine Microscopic RBC Urine Microscopic WBC Ur Squamous Epith Cells Urine Bacteria Hyaline Casts Ur Culture Indicated? 06/12/17 06/13/17 06/13/17 22:00 03:45 05:40 WBC 5.6 RBC 2.34 L Hgb 7.6 L 7.0 L Hct 24.6 L 23.1 L MCV 98.7 MCH 29.9 MCHC 30.3 L RDW 16.6 H Plt Count 295 MPV 10.8 Immature Gran % 0.9 Seg Neutrophils % 76.0 Lymphocytes % 10.5 Monocytes % 10.7 Eosinophils % 1.4 Basophils % 0.5 Neutrophils # 4.3 Lymphocytes # 0.6 Monocytes # 0.6 Eosinophils # 0.1 Basophils # 0.0 Immature Plt Fraction 4.7 Sodium Potassium Chloride Carbon Dioxide BUN Creatinine Est GFR ( Amer) Est GFR (Non-Af Amer) BUN/Creatinine Ratio Glucose POC Glucose Calculated Osmolality Calcium Iron % Saturation Transferrin Ferritin Urine Color Yellow Urine Clarity Cloudy A Urine pH 5.5 Ur Specific [place] 1.022 Urine Protein 30 H Urine Glucose (UA) Normal Urine Ketones 15 H Urine Blood Large H Urine Nitrite Positive A Urine Bilirubin Negative Urine Urobilinogen Normal Ur Leukocyte Esterase Large H Urine Microscopic RBC TNTC H Urine Microscopic WBC 30-50 H Ur Squamous Epith Cells Moderate H Urine Bacteria Moderate H Hyaline Casts Few Ur Culture Indicated? YES A 06/13/17 06/13/17 06/13/17 06:15 06:57 11:12 WBC RBC Hgb Hct MCV MCH MCHC RDW Plt Count MPV Immature Gran % Seg Neutrophils % Lymphocytes % Monocytes % Eosinophils % Basophils % Neutrophils # Lymphocytes # Monocytes # Eosinophils # Basophils # Immature Plt Fraction Sodium 141 Potassium 3.6 Chloride 109 Carbon Dioxide 27 BUN 29 H D Creatinine 0.83 Est GFR ( Amer) > 60 Est GFR (Non-Af Amer) > 60 BUN/Creatinine Ratio 35 H Glucose 127 H POC Glucose 139 H 112 H Calculated Osmolality 299 Calcium 8.2 L Iron % Saturation Transferrin Ferritin Urine Color Urine Clarity Urine pH Ur Specific [place] Urine Protein Urine Glucose (UA) Urine Ketones Urine Blood Urine Nitrite Urine Bilirubin Urine Urobilinogen Ur Leukocyte Esterase Urine Microscopic RBC Urine Microscopic WBC Ur Squamous Epith Cells Urine Bacteria Hyaline Casts Ur Culture Indicated? - ABG Interpretation ABG results: PT/INR, D-dimer PT 10.3 Seconds (9.4-12.1) 06/11/17 16:24 Consult Discharge Plan - Plan Referrals: Camelia Corado MD [Non-Partnered Physician] -
[2017-06-13 16:54] LABS: Hematocrit 25.4 % (37.5-50.1); Hemoglobin 8.3 g/dL (12.9-16.9)
[2017-06-14 05:51] LABS: Basophils % 0.6 %; Eosinophils # 0.1 K/mcL (0.0-0.6); Eosinophils % 1.2 %; Hematocrit 25.4 % (37.5-50.1); Immature Granulocytes % 0.5 % (0-4); Immature Platelets 4.1 % (1.1-6.1); Lymphocytes # 0.8 K/mcL (0.6-4.6); Lymphocytes % 11.6 %; Mean Corpuscular HGB Conc 31.5 g/dL (31.6-35.5); Mean Corpuscular Hemoglobin 30.4 pg (28.0-33.3); Mean Corpuscular Volume 96.6 fL (83.0-100.0); Mean Platelet Volume 9.9 fL (9.4-12.4); Monocytes # 0.7 K/mcL (0.0-1.3); Monocytes % 11.1 %; Neutrophils # 4.9 K/mcL (1.6-8.9); Platelet Count 272 K/mcL (140-400); Red Blood Count 2.63 M/mcL (4.19-5.50); Red Cell Distribution Width 17.1 % (11.5-14.5)
[2017-06-14 06:13] LABS: BUN/Creatinine Ratio 39 (6-26); Blood Urea Nitrogen 37 mg/dL (8-26); Calcium 8.1 mg/dL (8.6-10.8); Carbon Dioxide 25 mEq/L (19-29); Chloride 111 mEq/L (98-109); Glucose 111 mg/dL (70-99); Osmolality,Calculated 303 (280-300); Potassium 3.7 mEq/L (3.5-4.5); Sodium 142 mEq/L (136-145); eGFR For African Americans > 60 (> 60); eGFR For Non-African Americans > 60 (> 60)
[2017-06-14] MEDS: hydrALAZINE 25 MG TABLET PO SCH ×3 (06:40→22:48)
[2017-06-14] MEDS: Insulin LISPRO 300 UNITS/3 ML VIAL SQ SCH ×4 (07:26→20:39)
[2017-06-14] MEDS: Sulfamethoxazole/Trimeth DS 1 EACH TABLET PO SCH ×2 (08:40→20:54)
[2017-06-14] MEDS: Pregabalin 75 MG CAPSULE PO SCH ×2 (08:40→20:53)
[2017-06-14] MEDS: TRANEXAMIC ACID 1300 MG PO SCH ×2 (08:42→20:39)
[2017-06-14] MEDS: Latanoprost 2.5 ML BOTTLE BOTH EYES SCH ×2 (08:43→20:55)
[2017-06-14] MEDS ORDERED: Desmopressin Acetate SPRAY 5 ML BOTTLE NS ONE (09:05)
[2017-06-14] MEDS: Cyanocobalamin (B-12) 1,000 MCG TABLET PO SCH (10:29)
--- NOTE | 2017-06-14 10:36 | Internal Med Progress Note ---
Date of Encounter: 06/14/17 Time of Encounter: 08:15 - Assessment and plan (1) Acute blood loss anemia Current Visit: Yes Status: Acute Assessment and plan: Stool occult blood pending still. Pt has had multiple dark, tarry stools. Hgb 8.0 this a.m. Received 1 unit PRBCs yesterday. Will continue to monitor H and H daily. Oncology following and recommends repeating VW labs, additional dose of DDAP given today, adjust DDAVP dose according to VW levels in the am, Continue tranexamic acid 1300mg bid, maintain hgb >8.0 due to chronic risk factors of CAD and GIB, Continue Vit b12, and increase Ferrous Sulfate to 325mg BID and repeat iron panel in 2 weeks. Consider parental iron if poor absorption issue. Monitor CBC daily. All medications ordered, VW labs ordered, will wait for results that are not send off test. Tranexamic acid is not available, continue at home. Labs in a.m. If pt remains stable, most likely can discharge tomorrow, if no further recommendations from oncology. Stool for occult blood is still pending. (2) Von Willebrand disease Current Visit: Yes Status: Chronic Assessment and plan: Labs drawn and pending. Adjust dose of DDAVP according to lab values. Continue monthly Sandostatin. After discharge, monitor CBC weekly Follow up with paradichlorobenzene machine operator outpatient. (3) Severe dementia Current Visit: No Status: Chronic (4) Diabetes Current Visit: No Status: Chronic Assessment and plan: Sliding scale insulin, Accu-Cheks before meals at bedtime, diabetic diet. Qualifiers: Diabetes mellitus type: type 2 Diabetes mellitus complication status: without complication Diabetes mellitus intermediate insulin use: without termite renewal inspector use Qualified Code(s): E11.9 - Type 2 diabetes mellitus without complications (5) UTI (urinary tract infection) Current Visit: Yes Status: Acute Assessment and plan: UA on 06/13 revealed Large amt leukocyte esterase, TNTC RBCs, 30-50 WBCs, and Moderate Bacteria. Culture is pending. Prior sensitivities reviewed, pt has PCN allergy. Resistant to Fluoroquinolones. Will start Bactrim until final culture and sensitivity are available. 06/14- Preliminary culture Gram Negative Rods. Will wait for final and sensitivity. Pt is afebrile, has no leukocytosis, no tachycardia. Will continue to monitor. Qualifiers: Urinary tract infection type: acute cystitis Hematuria presence: with hematuria Qualified Code(s): N30.01 - Acute cystitis with hematuria (6) DVT prophylaxis Current Visit: Yes Status: Acute Assessment and plan: SCD. No pharmacologic prophylaxis at this time due to chronic blood loss anemia. - Subjective Interval history: Pt resting quietly in room. Arouses easily and is pleasant. He denies pain. Abd is soft and appears to be non-tender. No peripheral edema, no respiratory distress. He does not answer other questions. VW labs pending and oncology following. - Constitutional Vitals: Temp Pulse Resp BP Pulse Ox 97.7 F 71 14 119/75 96 06/14/17 07:10 06/14/17 07:10 06/14/17 07:10 06/14/17 07:10 06/14/17 07:10 General appearance: Present: cooperative, pleasant, no acute distress. Absent: answers questions appropriately - Head Head exam: Present: normal inspection - ENT ENT exam: Present: mucous membranes moist, normal external ear exam - Neck Neck exam general surgery: Present: normal inspection. Absent: lymphadenopathy , tenderness - Respiratory Respiratory exam: Present: CTAB. Absent: decreased breath sounds, rales, respiratory distress, rhonchi, wheezes Additional comments: poor inspiratory effort, pt does not follow commands. - Cardiovascular Cardiovascular exam: Present: RRR, +S1, +S2. Absent: diastolic murmur, systolic murmur - GI/Abdominal GI/Abdominal exam: Present: distended, normal bowel sounds, soft. Absent: hepatomegaly - Extremities Exam Extremities exam: Present: normal inspection, warm, radial pulses palpable and symetrical. Absent: pedal edema, tenderness - Neurological Exam Neurological exam: Absent: facial droop Internal Medicine: Result - Labs CBC & Chem 7: 06/14/17 05:40 06/14/17 05:40 Labs: Short CBC 06/13/17 06/14/17 Range/Units 16:37 05:40 WBC 6.6 (4.3-11.1) K/mcL Hgb 8.3 L 8.0 L (12.9-16.9) g/dL Hct 25.4 L 25.4 L (37.5-50.1) % Plt Count 272 (140-400) K/mcL Neutrophils # 4.9 (1.6-8.9) K/mcL BMP 06/14/17 05:40 Sodium 142 Potassium 3.7 Chloride 111 H Carbon Dioxide 25 BUN 37 H Creatinine 0.96 Glucose 111 H Calcium 8.1 L - ABG Interpretation ABG results: PT/INR, D-dimer PT 10.3 Seconds (9.4-12.1) 06/11/17 16:24 Consult Discharge Plan - Plan Referrals: Camelia Corado MD [Non-Partnered Physician] -
[2017-06-14] MEDS: Desmopressin Acetate SPRAY 5 ML BOTTLE NS SCH (20:56)
[2017-06-14] MEDS: *HR* FentaNYL PATCH 12 MCG PATCH TD SCH (20:57)
[2017-06-15] MEDS: hydrALAZINE 25 MG TABLET PO SCH ×3 (04:46→20:32)
[2017-06-15 05:28] LABS: BUN/Creatinine Ratio 33 (6-26); Basophils % 0.6 %; Blood Urea Nitrogen 32 mg/dL (8-26); Calcium 8.2 mg/dL (8.6-10.8); Carbon Dioxide 25 mEq/L (19-29); Chloride 111 mEq/L (98-109); Eosinophils # 0.1 K/mcL (0.0-0.6); Eosinophils % 1.8 %; Glucose 119 mg/dL (70-99); Hematocrit 23.4 % (37.5-50.1); Hemoglobin 7.2 g/dL (12.9-16.9); Immature Granulocytes % 0.3 % (0-4); Lymphocytes # 0.6 K/mcL (0.6-4.6); Lymphocytes % 9.3 %; Mean Corpuscular HGB Conc 30.8 g/dL (31.6-35.5); Mean Corpuscular Volume 97.5 fL (83.0-100.0); Mean Platelet Volume 10.4 fL (9.4-12.4); Monocytes # 0.8 K/mcL (0.0-1.3); Monocytes % 12.3 %; Neutrophils # 4.7 K/mcL (1.6-8.9); Osmolality,Calculated 302 (280-300); Platelet Count 229 K/mcL (140-400); Potassium 3.7 mEq/L (3.5-4.5); Red Cell Distribution Width 16.1 % (11.5-14.5); Segmented Neutrophils % 75.7 %; Sodium 142 mEq/L (136-145); eGFR For African Americans > 60 (> 60); eGFR For Non-African Americans > 60 (> 60)
[2017-06-15] MEDS: Insulin LISPRO 300 UNITS/3 ML VIAL SQ SCH ×4 (10:51→22:35)
[2017-06-15] MEDS: Sulfamethoxazole/Trimeth DS 1 EACH TABLET PO SCH ×2 (10:52→20:33)
[2017-06-15] MEDS: Cyanocobalamin (B-12) 1,000 MCG TABLET PO SCH (10:52)
[2017-06-15] MEDS: TRANEXAMIC ACID 1300 MG PO SCH ×2 (10:52→20:41)
[2017-06-15] MEDS: Pregabalin 75 MG CAPSULE PO SCH ×2 (10:52→20:33)
[2017-06-15] MEDS: Latanoprost 2.5 ML BOTTLE BOTH EYES SCH ×2 (10:52→20:41)
[2017-06-15] MEDS ORDERED: 0.9 % Sodium Chloride 250 ML ONE (12:17)
--- NOTE | 2017-06-15 16:33 | Internal Med Progress Note ---
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 According to his chart, patient is not a candidate for surgery. Also according to his chart, family has met with palliative care as recently as April of last year and at that time, they decided to proceed with frequent blood transfusions as needed. Patient has received 2 units and his hemoglobin today was 7.2 so another unit was ordered. More blood work was required prior to the transfusion of this third unit but the patient completely refused to have his blood work drawn. At this point, social work has been brought on board to determine if the patient has a guardian/power of document review attorney as he is not capable of making these decisions. If he continues to refuse care, we will have to sit down with the patient's family and power of document review attorney/guardian to determine how they wish to proceed. Patient is alert and oriented to self only otherwise he is unable to answer simple questions or engage in a conversation. We will attempt to continue to determine who is power of document review attorney is and have a discussion regarding his goals/plan of care. Will likely get palliative care on board. (2) Goals of care, counseling/discussion Current Visit: No Status: Acute (3) Anemia Current Visit: No Status: Chronic (4) Von Willebrand disease Current Visit: Yes Status: Chronic Assessment and plan: Oncology is on board and following. Continue DDAVP according to lab values, and his monthly Sandostatin. After discharge, monitor CBC weekly and follow up with fabricator industrial furnace outpatient. (5) Hypocalcemia Current Visit: No Status: Chronic (6) DVT prophylaxis Current Visit: Yes Status: Acute Assessment and plan: SCD. No pharmacologic prophylaxis at this time due to chronic blood loss anemia. (7) UTI (urinary tract infection) Current Visit: Yes Status: Acute Assessment and plan: Urine culture consistent with Escherichia coli with resistances to fluoroquinolones. Patient with penicillin allergy. He is appropriately being treated with Bactrim, will continue. Qualifiers: Urinary tract infection type: acute cystitis Hematuria presence: with hematuria Qualified Code(s): N30.01 - Acute cystitis with hematuria (8) GI bleed Current Visit: No Status: Chronic Qualifiers: GI bleed type/associated pathology: unspecified gastrointestinal hemorrhage type Qualified Code(s): K92.2 - Gastrointestinal hemorrhage, unspecified (9) Severe dementia Current Visit: No Status: Chronic Assessment and plan: Chronic. Continue to monitor pt closely for acute changes and falls. Oriented to self only. He is a bedhold at [facility], but whether or not his family is going to choose to continue to transfuse him has yet to be decided. He is not a candidate for surgery. He is still requiring transfusions. Appreciate Palliative and familial input on the goals of his care. (10) Diabetes Current Visit: No Status: Chronic Assessment and plan: Sliding scale insulin, Accu-Cheks before meals at bedtime, diabetic diet. Qualifiers: Diabetes mellitus type: type 2 Diabetes mellitus complication status: without complication Diabetes mellitus detention insulin use: without detention use Qualified Code(s): E11.9 - Type 2 diabetes mellitus without complications (11) Agitation Current Visit: No Status: Chronic Assessment and plan: Acute on chronic, and review of his chart, Haldol has been beneficial in the past, will add at this time. (12) Constipation Current Visit: No Status: Chronic Qualifiers: Constipation type: unspecified constipation type Qualified Code(s): K59.00 - Constipation, unspecified - Subjective Interval history: patient seen and examined. On examination, patient initially asleep and awakened to voice. Patient unable to answer questions appropriately at this time. When asked if he is in pain, patient stated, "OH my, are my vitals better ?" He was unable to answer any questions- no family at bedside. Patient however in no acute distress. - Constitutional Vitals: Temp Pulse Resp BP Pulse Ox 98.3 F 90 12 117/59 95 06/15/17 15:59 06/15/17 15:59 06/15/17 15:59 06/15/17 15:59 06/15/17 15:57 General appearance: Present: A&O X 1 (self only), pleasant, no acute distress. Absent: cooperative, answers questions appropriately - Head Head exam: Present: atraumatic, normocephalic - Eye Eye exam: Present: PERRL, conjuntiva pink, sclera anicteric Pupils: Present: PERRL - Neck Neck exam general surgery: Present: supple, trachea midline. Absent: lymphadenopathy - Respiratory Respiratory exam: Present: CTAB. Absent: accessory muscle use, rales, respiratory distress, rhonchi, wheezes - Cardiovascular Cardiovascular exam: Present: RRR, +S1, +S2. Absent: diastolic murmur, gallop, rubs, systolic murmur - GI/Abdominal GI/Abdominal exam: Present: normal bowel sounds, soft, no peritoneal signs. Absent: distended, tenderness - Extremities Exam Extremities exam: Present: warm, radial pulses palpable and symetrical. Absent : calf tenderness, cyanotic, pedal edema - Neurological Exam Neurological exam: Present: CN II-XII intact, no focal deficits, strengths equal and symetr throughout. Absent: oriented X3, pronater drift, facial droop , speech deficit - Skin Skin exam: Present: dry, intact, pallor, warm Internal Medicine: Result - Labs CBC & Chem 7: 06/15/17 04:55 06/15/17 04:55 - ABG Interpretation ABG results: PT/INR, D-dimer PT 10.3 Seconds (9.4-12.1) 06/11/17 16:24 Consult Discharge Plan - Plan Referrals: Camelia Corado MD [Non-Partnered Physician] -
[2017-06-15] MEDS ORDERED: Haloperidol Lactate 5 MG/ML VIAL IVP PRN (16:45)
[2017-06-16 04:53] LABS: Basophils % 0.6 %; Eosinophils # 0.2 K/mcL (0.0-0.6); Eosinophils % 2.1 %; Hemoglobin 8.4 g/dL (12.9-16.9); Immature Granulocytes % 0.4 % (0-4); Lymphocytes # 0.9 K/mcL (0.6-4.6); Lymphocytes % 12.1 %; Mean Corpuscular HGB Conc 32.3 g/dL (31.6-35.5); Mean Corpuscular Hemoglobin 30.8 pg (28.0-33.3); Mean Corpuscular Volume 95.2 fL (83.0-100.0); Mean Platelet Volume 10.8 fL (9.4-12.4); Monocytes # 0.9 K/mcL (0.0-1.3); Monocytes % 13.4 %; Platelet Count 232 K/mcL (140-400); Red Blood Count 2.73 M/mcL (4.19-5.50); Red Cell Distribution Width 16.7 % (11.5-14.5); Segmented Neutrophils % 71.4 %
[2017-06-16] MEDS: hydrALAZINE 25 MG TABLET PO SCH ×3 (05:35→20:48)
[2017-06-16] MEDS: Insulin LISPRO 300 UNITS/3 ML VIAL SQ SCH ×4 (09:26→20:49)
[2017-06-16] MEDS: Pregabalin 75 MG CAPSULE PO SCH ×2 (09:31→20:48)
[2017-06-16] MEDS: Cyanocobalamin (B-12) 1,000 MCG TABLET PO SCH (09:39)
[2017-06-16] MEDS: Sulfamethoxazole/Trimeth DS 1 EACH TABLET PO SCH ×2 (09:42→20:47)
[2017-06-16] MEDS: Latanoprost 2.5 ML BOTTLE BOTH EYES SCH ×2 (11:36→20:55)
[2017-06-16] MEDS: TRANEXAMIC ACID 1300 MG PO SCH ×2 (11:36→20:49)
--- NOTE | 2017-06-16 17:11 | Internal Med Progress Note ---
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 According to his chart, patient is not a candidate for surgery. Also according to his chart, family has met with palliative care as recently as April of last year and at that time, they decided to proceed with frequent blood transfusions as needed. Thus far, the patient has received 3 units of packed red blood cells. He remained hemodynamically stable overnight. Will observe overnight and if he remains hemodynamically stable, we will likely send him back to [facility] where he is a bed hold. I have attempted to get a hold of the family without success. I called the granddaughter Sofia [phone] and left her a voice mail. Would like to discuss goals/plan of care with the family as the patient is unable to make decisions for himself. Long-term plan of care discussions to ensue hopefully prior to discharge if unable to get a hold of the family. Basically, need to know whether or not the family wants to continue with frequent blood transfusions. Another issue that came up was earlier on in this admission, the patient had refused to get his blood drawn and would have been unable to receive blood transfusions without having his blood drawn. We were able to circumvent this issue as we were able to draw blood off his excess sting IV however if we were not able to do that, we would have had to have help the patient down to draw his blood which presents obvious ethical/legal issues. We will discuss with the family regarding these issues. He is a DNR CC. ancillary services manager also on board. It appears as if the patient's son Carmelo has the POA, we will hopefully speak to him tomorrow. If the patient requires blood again tomorrow, will transfuse if needed. Will likely involve palliative care at that point for further plan of care discussions. Of note, patient has not had a bowel movement since admission. Treating for constipation. His guaiac is still pending however even if positive, would not change plan of care. (2) Goals of care, counseling/discussion Current Visit: No Status: Acute (3) Anemia Current Visit: No Status: Chronic (4) Von Willebrand disease Current Visit: Yes Status: Chronic Assessment and plan: Oncology is on board and following. Continue DDAVP according to lab values, and his monthly Sandostatin. After discharge, monitor CBC weekly and follow up with accounting policy consultant outpatient. (5) Hypocalcemia Current Visit: No Status: Chronic (6) DVT prophylaxis Current Visit: Yes Status: Acute Assessment and plan: SCD. No pharmacologic prophylaxis at this time due to chronic blood loss anemia. (7) UTI (urinary tract infection) Current Visit: Yes Status: Acute Assessment and plan: Urine culture consistent with Escherichia coli with resistances to fluoroquinolones. Patient with penicillin allergy. He is appropriately being treated with Bactrim, will continue. Qualifiers: Urinary tract infection type: acute cystitis Hematuria presence: with hematuria Qualified Code(s): N30.01 - Acute cystitis with hematuria (8) GI bleed Current Visit: No Status: Chronic Qualifiers: GI bleed type/associated pathology: unspecified gastrointestinal hemorrhage type Qualified Code(s): K92.2 - Gastrointestinal hemorrhage, unspecified (9) Severe dementia Current Visit: No Status: Chronic Assessment and plan: Chronic. Continue to monitor pt closely for acute changes and falls. Oriented to self only. He is a bedhold at [facility], but whether or not his family is going to choose to continue to transfuse him has yet to be decided. He is not a candidate for surgery. He is still requiring transfusions. Appreciate Palliative and familial input on the goals of his care. (10) Diabetes Current Visit: No Status: Chronic Assessment and plan: Sliding scale insulin, Accu-Cheks before meals at bedtime, diabetic diet. Qualifiers: Diabetes mellitus type: type 2 Diabetes mellitus complication status: without complication Diabetes mellitus longitudinal float operator insulin use: without longitudinal float operator use Qualified Code(s): E11.9 - Type 2 diabetes mellitus without complications (11) Agitation Current Visit: No Status: Chronic Assessment and plan: Acute on chronic, and review of his chart, Haldol has been beneficial in the past, will add at this time. (12) Constipation Current Visit: No Status: Chronic Qualifiers: Constipation type: unspecified constipation type Qualified Code(s): K59.00 - Constipation, unspecified - Subjective Interval history: patient seen and examined. On examination, patient initially asleep and awakened to voice. Patient unable to answer questions appropriately at this time. At this time, patient thinks that he is in a field working. He is upset because used 3 hours late for work and he states that he is waiting on his son Jon. He was unable to answer any questions about whether or not he is in pain whether or not he is eating. No family present at the bedside. Patient however in no acute distress. - Constitutional Vitals: Temp Pulse Resp BP Pulse Ox 97.5 F L 68 16 120/68 99 06/16/17 16:04 06/16/17 16:04 06/16/17 16:04 06/16/17 16:04 06/16/17 16:04 General appearance: Present: A&O X 1 (self only), pleasant, no acute distress. Absent: cooperative, answers questions appropriately - Head Head exam: Present: atraumatic, normocephalic - Eye Eye exam: Present: PERRL, conjuntiva pink, sclera anicteric Pupils: Present: PERRL - Neck Neck exam general surgery: Present: supple, trachea midline. Absent: lymphadenopathy - Respiratory Respiratory exam: Present: CTAB. Absent: accessory muscle use, rales, respiratory distress, rhonchi, wheezes - Cardiovascular Cardiovascular exam: Present: RRR, +S1, +S2. Absent: diastolic murmur, gallop, rubs, systolic murmur - GI/Abdominal GI/Abdominal exam: Present: normal bowel sounds, soft, no peritoneal signs. Absent: distended, tenderness - Extremities Exam Extremities exam: Present: warm, radial pulses palpable and symetrical. Absent : calf tenderness, cyanotic, pedal edema - Neurological Exam Neurological exam: Present: alert, altered, CN II-XII intact, no focal deficits. Absent: oriented X3, pronater drift, facial droop, speech deficit - Skin Skin exam: Present: dry, intact, pallor, warm Internal Medicine: Result - Labs CBC & Chem 7: 06/16/17 04:30 06/15/17 04:55 Labs: Short CBC 06/16/17 Range/Units 04:30 WBC 7.0 (4.3-11.1) K/mcL Hgb 8.4 L (12.9-16.9) g/dL Hct 26.0 L (37.5-50.1) % Plt Count 232 (140-400) K/mcL Neutrophils # 5.0 (1.6-8.9) K/mcL - ABG Interpretation ABG results: PT/INR, D-dimer PT 10.3 Seconds (9.4-12.1) 06/11/17 16:24 Consult Discharge Plan - Plan Referrals: Camelia Corado MD [Non-Partnered Physician] -
[2017-06-17] MEDS: hydrALAZINE 25 MG TABLET PO SCH ×3 (05:49→20:32)
[2017-06-17 05:52] LABS: Basophils # 0.1 K/mcL (0.0-0.2); Basophils % 0.9 %; Eosinophils # 0.2 K/mcL (0.0-0.6); Eosinophils % 3.6 %; Hematocrit 25.3 % (37.5-50.1); Hemoglobin 7.9 g/dL (12.9-16.9); Immature Granulocytes % 0.4 % (0-4); Lymphocytes # 0.7 K/mcL (0.6-4.6); Lymphocytes % 13.3 %; Mean Corpuscular HGB Conc 31.2 g/dL (31.6-35.5); Mean Corpuscular Hemoglobin 29.8 pg (28.0-33.3); Mean Corpuscular Volume 95.5 fL (83.0-100.0); Mean Platelet Volume 10.8 fL (9.4-12.4); Monocytes # 0.8 K/mcL (0.0-1.3); Monocytes % 14.2 %; Neutrophils # 3.6 K/mcL (1.6-8.9); Platelet Count 210 K/mcL (140-400); Red Blood Count 2.65 M/mcL (4.19-5.50); Segmented Neutrophils % 67.6 %
[2017-06-17] MEDS: Cyanocobalamin (B-12) 1,000 MCG TABLET PO SCH (07:50)
[2017-06-17] MEDS: Insulin LISPRO 300 UNITS/3 ML VIAL SQ SCH ×4 (07:50→22:02)
[2017-06-17] MEDS: Pregabalin 75 MG CAPSULE PO SCH ×2 (07:50→20:32)
[2017-06-17] MEDS: Sulfamethoxazole/Trimeth DS 1 EACH TABLET PO SCH ×2 (07:50→20:32)
[2017-06-17] MEDS: TRANEXAMIC ACID 1300 MG PO SCH ×2 (07:51→20:41)
[2017-06-17] MEDS: Latanoprost 2.5 ML BOTTLE BOTH EYES SCH ×2 (07:51→20:41)
--- NOTE | 2017-06-17 17:34 | Internal Med Progress Note ---
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 He is the power of managing attorney. At this point, Carmelo has realistic expectations and readily admits that his father's health has declined rapidly in the recent past. He states he is very torn on what to do regarding plans of care. He understands that his dad has no quality of life but he has ethical hesitations regarding withdrawing blood transfusions and not feeding him. Carmelo would like for him and his siblings to meet with the palliative care team tomorrow if possible. He states that he has siblings that are not in agreement and will "fight me at every move." Carmelo is torn and needs help. Of note, Carmelo states that he "better not be pushed into hospice. It's my decision and I don't want to be pushed." Palliative now onboard. Of note, patient dropped a half point on his hemoglobin overnight. At this rate, if he were to [facility], he would most likely returned within a day or 2 for more blood transfusions. At this point, Carmelo 15 to be transfused as needed but is aware that further conversations regarding plan of care need to partake in the near future hopefully tomorrow. I also asked Carmelo if the patient refuses to have his blood drawn what he would like us to do. At this point, Carmelo states that we need to hold him down and "do would she need to do. " Carmelo also states that "everything is to be done unless he goes into arrest so if he does not sees or does not have a heart attack, he needs to do everything that you need to do." Attempted to speak to Carmelo regarding the ethical implications regarding doing no harm in this situation however he states that his father is no longer able to make these decisions, and he states that even if his father attempts to refuse treatment, that he is "not in his right mind and it is my decision." Appreciate palliative care's input. 06/16/17 In review of her start over the past year, this is roughly his 10th visit to receive packed red blood cells secondary to chronic GI blood loss. According to his chart, patient is not a candidate for surgery. Also according to his chart, family has met with palliative care as recently as April of last year and at that time, they decided to proceed with frequent blood transfusions as needed. Thus far, the patient has received 3 units of packed red blood cells. He remained hemodynamically stable overnight. Will observe overnight and if he remains hemodynamically stable, we will likely send him back to [facility] where he is a bed hold. I have attempted to get a hold of the family without success. I called the granddaughter Sofia [phone] and left her a voice mail. Would like to discuss goals/plan of care with the family as the patient is unable to make decisions for himself. Long-term plan of care discussions to ensue hopefully prior to discharge if unable to get a hold of the family. Basically, need to know whether or not the family wants to continue with frequent blood transfusions. Another issue that came up was earlier on in this admission, the patient had refused to get his blood drawn and would have been unable to receive blood transfusions without having his blood drawn. We were able to circumvent this issue as we were able to draw blood off his excess sting IV however if we were not able to do that, we would have had to have help the patient down to draw his blood which presents obvious ethical/legal issues. We will discuss with the family regarding these issues. He is a DNR CC. oil well services dispatcher also on board. It appears as if the patient's son Carmelo has the POA, we will hopefully speak to him tomorrow. If the patient requires blood again tomorrow, will transfuse if needed. Will likely involve palliative care at that point for further plan of care discussions. Of note, patient has not had a bowel movement since admission. Treating for constipation. His guaiac is still pending however even if positive, would not change plan of care. (2) Goals of care, counseling/discussion Current Visit: No Status: Acute Assessment and plan: Of note, Carmelo is under the impression that because his dad can no longer revoke the power of managing attorney, that he is no longer legally the power of managing attorney. Carmelo informed that this is not the case and that the power of managing attorney is still legally valid when the patient can no longer consent or withdraw as this is the purpose of having a power of managing attorney. Cramelo remains convinced that because his father can no longer revoke the POA, that he legally has no bearing as the POA. Again, appreciate Palliative's input. (3) Anemia Current Visit: No Status: Chronic (4) Von Willebrand disease Current Visit: Yes Status: Chronic Assessment and plan: Oncology is on board and following. Continue DDAVP according to lab values, and his monthly Sandostatin. After discharge, monitor CBC weekly and follow up with educational resource center teacher outpatient. (5) Hypocalcemia Current Visit: No Status: Chronic (6) DVT prophylaxis Current Visit: Yes Status: Acute Assessment and plan: SCD. No pharmacologic prophylaxis at this time due to chronic blood loss anemia. (7) UTI (urinary tract infection) Current Visit: Yes Status: Acute Assessment and plan: Urine culture consistent with Escherichia coli with resistances to fluoroquinolones. Patient with penicillin allergy. He is appropriately being treated with Bactrim, will continue. On day 5, will treat for 7 days. Qualifiers: Urinary tract infection type: acute cystitis Hematuria presence: with hematuria Qualified Code(s): N30.01 - Acute cystitis with hematuria (8) GI bleed Current Visit: No Status: Chronic Qualifiers: GI bleed type/associated pathology: unspecified gastrointestinal hemorrhage type Qualified Code(s): K92.2 - Gastrointestinal hemorrhage, unspecified (9) Severe dementia Current Visit: No Status: Chronic Assessment and plan: Chronic. Continue to monitor pt closely for acute changes and falls. Oriented to self only. He is a bedhold at [facility], but whether or not his family is going to choose to continue to transfuse him has yet to be decided. He is not a candidate for surgery. He is still requiring transfusions. Appreciate Palliative and familial input on the goals of his care. (10) Diabetes Current Visit: No Status: Chronic Assessment and plan: Sliding scale insulin, Accu-Cheks before meals at bedtime, diabetic diet. Qualifiers: Diabetes mellitus type: type 2 Diabetes mellitus complication status: without complication Diabetes mellitus long term care pharmacist insulin use: without senior care use Qualified Code(s): E11.9 - Type 2 diabetes mellitus without complications (11) Agitation Current Visit: No Status: Chronic Assessment and plan: Acute on chronic, and review of his chart, Haldol has been beneficial in the past, will continue at this time. (12) Constipation Current Visit: No Status: Chronic Assessment and plan: large BM charted today. Qualifiers: Constipation type: unspecified constipation type Qualified Code(s): K59.00 - Constipation, unspecified - Time Spent With Patient Greater than 35 minutes (goals and plan of care discussion) - Subjective Interval history: patient seen and examined earlier this morning. He was initially asleep and awakened to voice. He would keep his eyes closed but would start to speak however I was unable to follow him in conversation. He was unable to answer questions. I reexamined him this evening with his son at the bedside and he remained the same. - Constitutional Vitals: Temp Pulse Resp BP Pulse Ox 97.5 F L 66 16 120/57 98 06/17/17 15:16 06/17/17 15:16 06/17/17 15:16 06/17/17 15:16 06/17/17 15:16 General appearance: Present: A&O X 1 (self only), pleasant, no acute distress. Absent: cooperative, answers questions appropriately - Head Head exam: Present: atraumatic, normocephalic - Eye Eye exam: Present: PERRL, conjuntiva pink, sclera anicteric Pupils: Present: PERRL - Neck Neck exam general surgery: Present: supple, trachea midline. Absent: lymphadenopathy - Respiratory Respiratory exam: Present: decreased breath sounds. Absent: accessory muscle use, rales, respiratory distress, rhonchi, wheezes - Cardiovascular Cardiovascular exam: Present: RRR, +S1, +S2. Absent: diastolic murmur, gallop, rubs, systolic murmur - GI/Abdominal GI/Abdominal exam: Present: normal bowel sounds, soft, no peritoneal signs. Absent: distended, tenderness - Extremities Exam Extremities exam: Present: warm, radial pulses palpable and symetrical. Absent : calf tenderness, cyanotic, pedal edema - Neurological Exam Neurological exam: Present: altered, speech deficit. Absent: pronater drift, facial droop - Expanded Neurological Exam Neurological exam expanded: Present: protecting the airway Patient oriented to: Present: person (at times knows his son). Absent: place, time Speech: Present: expressive aphasia, garbled, receptive aphasia Coma Scale Eye Opening: To Voice Coma Scale Motor Response: Withdraws to Pain Coma Scale Verbal Response: Inappropriate Coma Scale Total: 10 - Skin Skin exam: Present: dry, intact, pallor, warm Internal Medicine: Result - Labs CBC & Chem 7: 06/17/17 05:24 06/15/17 04:55 Labs: Short CBC 06/17/17 Range/Units 05:24 WBC 5.3 (4.3-11.1) K/mcL Hgb 7.9 L (12.9-16.9) g/dL Hct 25.3 L (37.5-50.1) % Plt Count 210 (140-400) K/mcL Neutrophils # 3.6 (1.6-8.9) K/mcL - ABG Interpretation ABG results: PT/INR, D-dimer PT 10.3 Seconds (9.4-12.1) 06/11/17 16:24 Consult Discharge Plan - Plan Referrals: Camelia Corado MD [Non-Partnered Physician] -
[2017-06-17] MEDS: *HR* FentaNYL PATCH 12 MCG PATCH TD SCH (20:32)
[2017-06-17] MEDS: Desmopressin Acetate SPRAY 5 ML BOTTLE NS SCH (20:34)
[2017-06-18] MEDS: hydrALAZINE 25 MG TABLET PO SCH ×2 (06:24→13:40)
[2017-06-18 06:50] LABS: Basophils % 0.7 %; Eosinophils # 0.2 K/mcL (0.0-0.6); Eosinophils % 2.6 %; Hematocrit 27.3 % (37.5-50.1); Hemoglobin 8.5 g/dL (12.9-16.9); Immature Granulocytes % 0.5 % (0-4); Lymphocytes # 0.8 K/mcL (0.6-4.6); Lymphocytes % 12.7 %; Mean Corpuscular HGB Conc 31.1 g/dL (31.6-35.5); Mean Corpuscular Hemoglobin 30.2 pg (28.0-33.3); Mean Corpuscular Volume 97.2 fL (83.0-100.0); Mean Platelet Volume 11.3 fL (9.4-12.4); Monocytes # 0.9 K/mcL (0.0-1.3); Monocytes % 14.2 %; Neutrophils # 4.2 K/mcL (1.6-8.9); Platelet Count 227 K/mcL (140-400); Red Blood Count 2.81 M/mcL (4.19-5.50); Red Cell Distribution Width 15.6 % (11.5-14.5); Segmented Neutrophils % 69.3 %
[2017-06-18] MEDS: Cyanocobalamin (B-12) 1,000 MCG TABLET PO SCH (07:32)
[2017-06-18] MEDS: Sulfamethoxazole/Trimeth DS 1 EACH TABLET PO SCH (07:32)
[2017-06-18] MEDS: Insulin LISPRO 300 UNITS/3 ML VIAL SQ SCH ×3 (07:32→15:39)
[2017-06-18] MEDS: TRANEXAMIC ACID 1300 MG PO SCH (07:33)
[2017-06-18] MEDS: Pregabalin 75 MG CAPSULE PO SCH (07:33)
[2017-06-18] MEDS: Latanoprost 2.5 ML BOTTLE BOTH EYES SCH (07:34)
--- NOTE | 2017-06-18 07:53 | Palliative - Consult Note ---
Date of Encounter: 06/18/17 Time of Encounter: 07:00 - Assessment and Plan (1) Anemia Current Visit: No Status: Chronic Assessment and plan: d/t VWD getting blood but is requiring it more often, he patient does have dementia and is unable to give me much history in terms of his and her daughter living for the last year. I will be discussing this further with family today at 1330. Qualifiers: Anemia type: iron deficiency Iron deficiency anemia type: chronic blood loss Qualified Code(s): D50.0 - Iron deficiency anemia secondary to blood loss (chronic) (2) UTI (urinary tract infection) Current Visit: Yes Status: Acute Assessment and plan: Escherichia coli on the microbiology, sensitive to everything except Floxin's, patient is on appropriate antibiotics. Plan per hospitalist team. Qualifiers: Urinary tract infection type: acute cystitis Hematuria presence: with hematuria Qualified Code(s): N30.01 - Acute cystitis with hematuria (3) Severe dementia Current Visit: No Status: Chronic Assessment and plan: Discussed with family further the degree of dementia however the patient is able to speak in full sentences even able to make sense although things he talks about May or may not be actual. Not sure how much ambulatory ability has been loss but the patient clearly has speech ability and therefore is not meeting 7 see criteria. (4) Pain, abdominal, generalized Current Visit: No Status: Acute Assessment and plan: Patient states that this time the pain is under good control and has no complaints of. Gamblin appears to be effective. No changes anticipated at this time. (5) Goals of care, counseling/discussion Current Visit: No Status: Acute Assessment and plan: CODE STATUS is at comfort care. The family has decided do not wish to have any further aggressive care for him, however they do wish to continue blood transfusions. I will be meeting with them at 1330 a day to discuss long-term goals of care. Notably placed on the chart after that meeting. Palliative-CN HPI - Data of Consult Patient: known to practice within the last 3 years Requesting Physician: Edie Brooks Primary Care Provider: PCP NO - Consult Narrative Palliative Care/Comfort Measures: Palliative care History of present illness: Mr. 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 It has been getting blood on a fairly regular basis for over a year, palliative care saw him approximately a year and a month ago. At that time the patient had a low quality of living he was enjoying his family family was enjoying him the transfusions were the only issue. Time I felt that the patient was not appropriate for hospice given that the aggressive treatment that he was receiving for his von Willebrand's disease seemed appropriate, was benefiting from it. All questions from the medical staff at this time as to whether or not that is still the case we will be meeting with family later on today. She is able to tell me that he is having no discomfort at this time although there have been comments about him not eating the chart seems to reflect that he has been, and I suspect this may have to do with assistance with eating. Was able to drink from me as long as he was assisted. CC: Edie Brooks Abnormal labs Past Med Surg Social Fam HX - Past Medical History Medical history: arthritis, atrial fibrillation, coronary artery disease, dementia, diabetes, GERD, hypertension, myocardial infarction, other Psychiatric history: anxiety, other - Social History Smoking Status: Former smoker Smokeless Tobacco Status: No Alcohol use: none Drug use: none - Family History Mother Living Status: Hx Family Cardiac Disorders: Yes Hx Family Respiratory Disorders: No Hx Family Cancer: Yes (liver cancer) Hx Family Endocrine Disorder: No Hx Family Neuromuscular Disorders: No Hx Family Neurologic Disorders: No Hx Family HEENT Disorders: Yes (thinks so) Hx Family Autoimmune Disorders: No Father Living Status: Hx Family Cardiac Disorders: Yes (HTN) Hx Family Respiratory Disorders: No Hx Family Cancer: No Hx Family GI Disorders: No Hx Family Endocrine Disorder: Yes (DM) Hx Family Neuromuscular Disorders: No Hx Family Neurologic Disorders: No Hx Family HEENT Disorders: No Hx Family Autoimmune Disorders: No Son Living Status: Still Living Hx Family Cardiac Disorders: Yes (htn) Medications and Allergies Tranexamic Acid [Lysteda] 1,300 mg PO BID 60 Days 07/24/15 [Rx] Acetaminophen [Tylenol] 325 mg PO Q4H PRN 05/13/16 [History] Ascorbate Calcium [Vitamin C] 500 mg PO BID 05/13/16 [History] Cyanocobalamin (B-12) [Vitamin B12] 1,000 mcg IM QMONTH 05/13/16 [History] Cyanocobalamin (Vitamin B-12) [Vitamin B-12] 1,000 mcg PO DAILY 05/13/16 [ History] Desmopressin Acetate [Ddavp] 1 spray NS MOTH 05/13/16 [History] Docusate [Colace] 100 mg PO BID 05/13/16 [History] FentaNYL PATCH [Duragesic] 12 mcg TD Q72H 05/13/16 [History] Ferrous Sulfate [Iron Supplement] 325 mg PO DAILY 05/13/16 [History] Hydralazine HCl 50 mg PO Q8H 05/13/16 [History] Polyethylene Glycol 3350 [MiraLAX] 17 gm PO DAILY 05/13/16 [History] Tamsulosin [Flomax] 0.4 mg PO HS 05/13/16 [History] Travoprost [Travatan Z] 1 drop BOTH EYES BID 05/13/16 [History] Omeprazole [PriLOSEC] 40 mg PO BIDAC capsule 05/18/16 [Rx] LORazepam [Ativan] 0.5 mg PO 1600 09/28/16 [History] Pregabalin [Lyrica] 75 mg PO BID 09/28/16 [History] Timolol Maleate 0.5% 1 drop LEFT EYE BID 01/27/17 [History] Acetaminophen [Tylenol] 500 mg PO 0800,1600,199906/11/17 [History] LORazepam [Ativan] 0.5 mg PO BID PRN 06/11/17 [History] Melatonin [Melatin] 6 mg PO HS PRN 06/11/17 [History] Octreotide Acetate,Mi-Spheres [Sandostatin Lar Depot] 10 mg IM QMONTH 06/11/17 [ History] Allergies Penicillins Allergy (Verified 07/04/15 12:33) Swelling of Lip/Tongue/Throat ibuprofen Adverse Reaction (Verified 05/13/16 15:45) Unknown List from [facility] NSAIDS (Non-Steroidal Anti-Inflamma Adverse Reaction (Verified 05/13/16 15:45) Unknown List from [facility] salicylates Adverse Reaction (Verified 05/13/16 15:45) Unknown List from [facility] ROS unobtainable: due to mental status Palliative Care-Exam - Constitutional Vitals: Temp Pulse Resp BP Pulse Ox 98.1 F 62 14 130/76 98 06/18/17 07:10 06/18/17 07:10 06/18/17 07:10 06/18/17 07:10 06/18/17 07:10 General appearance: Present: no acute distress - Head Head Exam: Present: atraumatic, normal inspection - Eye Eye exam: Present: normal appearance - ENT ENT exam: Present: mucous membranes moist - Respiratory Respiratory exam: Present: decreased breath sounds - Cardiovascular Cardiovascular exam: Present: RRR - GI/Abdominal Exam GI/Abdominal exam: Present: normal bowel sounds, soft. Absent: tenderness - Extremities Exam Extremities exam: Absent: pedal edema, tenderness - Neurological Exam Neurological exam: Present: alert. Absent: oriented X3 - Psychiatric Psychiatric exam: Absent: agitated, anxious - Skin Skin exam: Present: dry, warm Internal Medicine - CN: Reslt - Labs CBC & Chem 7: 06/18/17 06:24 06/15/17 04:55 Labs: Short CBC 06/18/17 Range/Units 06:24 WBC 6.0 (4.3-11.1) K/mcL Hgb 8.5 L (12.9-16.9) g/dL Hct 27.3 L (37.5-50.1) % Plt Count 227 (140-400) K/mcL Neutrophils # 4.2 (1.6-8.9) K/mcL - ABG Interpretation ABG results: PT/INR, D-dimer PT 10.3 Seconds (9.4-12.1) 06/11/17 16:24 Consult Discharge Plan - Plan Referrals: Camelia Corado MD [Non-Partnered Physician] - Palliative Quality Palliative Quality: Screen for Code Status: Yes, Screen for Goals of Care: Yes, Screen for Pain: Yes, If Pain Regimen Started, Initiate Bowel Regimen: Yes, Screen for Nausea/Vomitting: Yes
[2017-06-18 14:39] VITALS: BP 102/50
--- NOTE | 2017-06-18 16:24 | Discharge Summary ---
Date of Encounter: 06/18/17 Time of Encounter: 09:30 - Discharge Diagnosis (1) Chronic blood loss anemia Priority: Secondary Status: Chronic Comments: remained hemodynamically stable for 2 days after his most recent transfusion. Received 3 units of packed red blood cells during this admission. (2) Goals of care, counseling/discussion Priority: Primary Status: Resolved (3) Anemia Priority: Secondary Status: Chronic (4) Von Willebrand disease Priority: Secondary Status: Chronic (5) Hypocalcemia Priority: Secondary Status: Chronic (6) DVT prophylaxis Priority: Primary Status: Acute Comments: SCD. Pharmacologic prophylaxis contraindicated due to chronic blood loss anemia. (7) UTI (urinary tract infection) Priority: Primary Status: Acute Comments: Urine culture consistent with Escherichia coli with resistances to fluoroquinolones. Patient with penicillin allergy. He was treated with Bactrim , will continue. On day 6, will treat for 7 days total Qualifiers: Urinary tract infection type: acute cystitis Hematuria presence: with hematuria Qualified Code(s): N30.01 - Acute cystitis with hematuria (8) GI bleed Priority: Secondary Status: Chronic Comments: appears resolved. had learge BM prior to discharge that was nonbloody, nonbilious. Qualifiers: GI bleed type/associated pathology: unspecified gastrointestinal hemorrhage type Qualified Code(s): K92.2 - Gastrointestinal hemorrhage, unspecified (9) Severe dementia Priority: Secondary Status: Chronic (10) Diabetes Priority: Secondary Status: Chronic Comments: Controlled. Recent A1c 4.8%. Follow-up outpatient. 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 Qualified Code(s): E11.9 - Type 2 diabetes mellitus without complications (11) Agitation Priority: Secondary Status: Resolved (12) Constipation Priority: Secondary Status: Resolved Qualifiers: Constipation type: unspecified constipation type Qualified Code(s): K59.00 - Constipation, unspecified - Discharge Medications Prescriptions: FentaNYL PATCH [Duragesic] 12 mcg TD Q72H #2 LORazepam [Ativan] 0.5 mg PO BID PRN #10 PRN Reason: Anxiety/Aggitation LORazepam [Ativan] 0.5 mg PO 1600 #7 Pregabalin [Lyrica] 75 mg PO BID #14 Sulfamethoxazole/Trimeth DS [Bactrim Ds] 1 each PO BID #3 tab Home Medications: Tranexamic Acid [Lysteda] 1,300 mg PO BID 60 Days 07/24/15 [Rx] Acetaminophen [Tylenol] 325 mg PO Q4H PRN 05/13/16 [History] Ascorbate Calcium [Vitamin C] 500 mg PO BID 05/13/16 [History] Cyanocobalamin (B-12) [Vitamin B12] 1,000 mcg IM QMONTH 05/13/16 [History] Cyanocobalamin (Vitamin B-12) [Vitamin B-12] 1,000 mcg PO DAILY 05/13/16 [ History] Desmopressin Acetate [Ddavp] 1 spray NS MOTH 05/13/16 [History] Docusate [Colace] 100 mg PO BID 05/13/16 [History] Ferrous Sulfate [Iron Supplement] 325 mg PO DAILY 05/13/16 [History] Hydralazine HCl 50 mg PO Q8H 05/13/16 [History] Polyethylene Glycol 3350 [MiraLAX] 17 gm PO DAILY 05/13/16 [History] Tamsulosin [Flomax] 0.4 mg PO HS 05/13/16 [History] Travoprost [Travatan Z] 1 drop BOTH EYES BID 05/13/16 [History] Omeprazole [PriLOSEC] 40 mg PO BIDAC capsule 05/18/16 [Rx] Timolol Maleate 0.5% 1 drop LEFT EYE BID 01/27/17 [History] Acetaminophen [Tylenol] 500 mg PO 0800,1600,2000 06/11/17 [History] Melatonin [Melatin] 6 mg PO HS PRN 06/11/17 [History] Octreotide Acetate,Mi-Spheres [Sandostatin Lar Depot] 10 mg IM QMONTH 06/11/17 [ History] FentaNYL PATCH [Duragesic] 12 mcg TD Q72H #2 06/18/17 [Rx] LORazepam [Ativan] 0.5 mg PO 1600 #7 06/18/17 [Rx] LORazepam [Ativan] 0.5 mg PO BID PRN #10 06/18/17 [Rx] Pregabalin [Lyrica] 75 mg PO BID #14 06/18/17 [Rx] Sulfamethoxazole/Trimeth DS [Bactrim Ds] 1 each PO BID #3 tab 06/18/17 [Rx] Allergies/Adverse Reactions: Allergies Penicillins Allergy (Verified 07/04/15 12:33) Swelling of Lip/Tongue/Throat ibuprofen Adverse Reaction (Verified 05/13/16 15:45) Unknown List from [facility] NSAIDS (Non-Steroidal Anti-Inflamma Adverse Reaction (Verified 05/13/16 15:45) Unknown List from [facility] salicylates Adverse Reaction (Verified 05/13/16 15:45) Unknown List from [facility] Date of admission: 06/15/17 09:29 Primary care physician: PCP NONE Consults: 06/17/17 17:25 Consult to Palliative Care [CONS] Routine Comment: Consulting Provider: Palliative Care Marisela Reason for Consult: patient has advanced dementia with chronic GI bleed. Needs frequent transfusions that are now becoming more frequent and he is declining. Now refusing to eat. Met with hospice approx 6 mos ago and refused it Time Notified: 17:26 Call Completed: Yes 06/18/17 07:23 Consult to Nutrition [CONS] Stat Comment: please see today Consulting Provider: NUTRITION Reason for Dietary Consult: PO Supplementation Discharging clinician: Edie Raza Anticipated date of discharge: 06/18/17 ([facility]) - Patient Status Disposition: Transfer SNF Condition: Fair Functional capacity at discharge: bed bound Overall status at discharge: patient is back to baseline - Discharge Instructions Follow Up With: Camelia Corado MD [Non-Partnered Physician] - Additional Instructions: Follow-up with primary care provider within one week - Diet and Activity Activity: resume usual activities as tolerated Diet: other (mechanically altered as jammie with ensure prn) Hospital course: Mr. 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 Patient was sent to the emergency department chief complaint of anemia with hemoglobin of 7.6. History was obtained per staff and per medical records given that the patient has advanced dementia and unable to give history for himself. Just prior to presentation, patient had hemoglobin of 6.8 and received 2 units of packed red blood cells and repeat hemoglobin was 7.6 which was a more rapid decline and the patient typically has after receiving blood. Workup in the emergency department notable for anemia and a urinary tract infection. Patient was admitted to the hospitalist service for further evaluation and management. Oncology was brought on board who continued his DDAVP according to his lab values and continued his monthly Sandostatin. During this admission, patient required 3 units of packed red blood cells. After the third unit, he remained hemodynamically stable after 2 days so [facility]. Of note, during this 7 night admission, patient initially was refusing to eat and was refusing to have his blood drawn and refusing his medications. At that point, discussions with the family began to ensue what the next step were regarding plan of care. Palliative care was brought on board and several lengthy discussions with the patient's family ensued. Power of associate attorney Carmelo states the family is in consensus with keeping the patient has a DNR CC and with frequent blood transfusions as needed. Towards the end of the patient's admission, he returned back to his baseline. He started to eat again, he started interacting and speak more. He was not a candidate for hospice. His urinary tract infection was consistent with Escherichia coli with resistance to fluoroquinolones and with patient's penicillin allergy, he was treated with Bactrim for 7 days total. He was discharged back to [facility] is in stable condition with close outpatient follow-up recommended. - Time Spent with Patient Total time spent providing and/or coordinating discharge services: - Constitutional Vitals: Temp Pulse Resp BP Pulse Ox 98.3 F 69 15 102/50 97 06/18/17 14:38 06/18/17 14:38 06/18/17 14:38 06/18/17 14:38 06/18/17 14:38 General appearance: Present: A&O X 1 (self only), pleasant, no acute distress. Absent: cooperative, answers questions appropriately - Head Head exam: Present: atraumatic, normocephalic - Eye Eye exam: Present: conjuntiva pink, sclera anicteric - Neck Neck exam general surgery: Present: supple, trachea midline. Absent: lymphadenopathy - Respiratory Respiratory exam: Present: decreased breath sounds. Absent: accessory muscle use, rales, respiratory distress, rhonchi, wheezes - Cardiovascular Cardiovascular exam: Present: RRR, +S1, +S2. Absent: diastolic murmur, gallop, rubs, systolic murmur - GI/Abdominal GI/Abdominal exam: Present: normal bowel sounds, soft, no peritoneal signs. Absent: distended, tenderness - Extremities Exam Extremities exam: Present: warm, radial pulses palpable and symetrical. Absent : calf tenderness, cyanotic, pedal edema - Neurological Exam Neurological exam: Present: altered, speech deficit (chronic). Absent: pronater drift, facial droop - Skin Skin exam: Present: dry, intact, pallor, warm
--- NOTE | 2017-06-18 16:41 | Physician Discharge Referral ---
ExtendedCare Referral Info Transfer To: [facility] Provider in Charge: Sebastian Raza CNP Provider in Charge after Transfer: PCP Institutional Level of Care: Skilled - Diagnosis (1) Chronic blood loss anemia Priority: Secondary Status: Chronic (2) Goals of care, counseling/discussion Priority: Primary Status: Resolved (3) Anemia Priority: Secondary Status: Chronic (4) Von Willebrand disease Priority: Secondary Status: Chronic (5) Hypocalcemia Priority: Secondary Status: Chronic (6) DVT prophylaxis Priority: Primary Status: Acute (7) UTI (urinary tract infection) Priority: Primary Status: Acute (8) GI bleed Priority: Secondary Status: Chronic (9) Severe dementia Priority: Secondary Status: Chronic (10) Diabetes Priority: Secondary Status: Chronic (11) Agitation Priority: Primary Status: Resolved (12) Constipation Priority: Primary Status: Resolved Prognosis: Poor Aware of Diagnosis: Family Aware of Prognosis: Family - Transfer Medications Prescriptions: FentaNYL PATCH [Duragesic] 12 mcg TD Q72H #2 LORazepam [Ativan] 0.5 mg PO BID PRN #10 PRN Reason: Anxiety/Aggitation LORazepam [Ativan] 0.5 mg PO 1600 #7 Pregabalin [Lyrica] 75 mg PO BID #14 Sulfamethoxazole/Trimeth DS [Bactrim Ds] 1 each PO BID #3 tab Home Medications: Tranexamic Acid [Lysteda] 1,300 mg PO BID 60 Days 07/24/15 [Rx] Acetaminophen [Tylenol] 325 mg PO Q4H PRN 05/13/16 [History] Ascorbate Calcium [Vitamin C] 500 mg PO BID 05/13/16 [History] Cyanocobalamin (B-12) [Vitamin B12] 1,000 mcg IM QMONTH 05/13/16 [History] Cyanocobalamin (Vitamin B-12) [Vitamin B-12] 1,000 mcg PO DAILY 05/13/16 [ History] Desmopressin Acetate [Ddavp] 1 spray NS MOTH 05/13/16 [History] Docusate [Colace] 100 mg PO BID 05/13/16 [History] Ferrous Sulfate [Iron Supplement] 325 mg PO DAILY 05/13/16 [History] Hydralazine HCl 50 mg PO Q8H 05/13/16 [History] Polyethylene Glycol 3350 [MiraLAX] 17 gm PO DAILY 05/13/16 [History] Tamsulosin [Flomax] 0.4 mg PO HS 05/13/16 [History] Travoprost [Travatan Z] 1 drop BOTH EYES BID 05/13/16 [History] Omeprazole [PriLOSEC] 40 mg PO BIDAC capsule 05/18/16 [Rx] Timolol Maleate 0.5% 1 drop LEFT EYE BID 01/27/17 [History] Acetaminophen [Tylenol] 500 mg PO 0800,1600,2000 06/11/17 [History] Melatonin [Melatin] 6 mg PO HS PRN 06/11/17 [History] Octreotide Acetate,Mi-Spheres [Sandostatin Lar Depot] 10 mg IM QMONTH 06/11/17 [ History] FentaNYL PATCH [Duragesic] 12 mcg TD Q72H #2 06/18/17 [Rx] LORazepam [Ativan] 0.5 mg PO 1600 #7 06/18/17 [Rx] LORazepam [Ativan] 0.5 mg PO BID PRN #10 06/18/17 [Rx] Pregabalin [Lyrica] 75 mg PO BID #14 06/18/17 [Rx] Sulfamethoxazole/Trimeth DS [Bactrim Ds] 1 each PO BID #3 tab 06/18/17 [Rx] Allergies/Adverse Reactions: Allergies Penicillins Allergy (Verified 07/04/15 12:33) Swelling of Lip/Tongue/Throat ibuprofen Adverse Reaction (Verified 05/13/16 15:45) Unknown List from [facility] NSAIDS (Non-Steroidal Anti-Inflamma Adverse Reaction (Verified 05/13/16 15:45) Unknown List from [facility] salicylates Adverse Reaction (Verified 05/13/16 15:45) Unknown List from [facility] - Respiratory Orders Smoking Cessation: Smoking cessation has been advised. For more information, call the [place] Tobacco Quit Line at 7-878-YWHE-NOW. - Ancillary Orders May use pressure relief devices daily prn, May go on SALBADOR w/family/respon constitution party w /meds at nurse discretion PRN, May have alcoholic beverages, May consult with Dentist, Cartographic Engineer, Real Estate Investor PRN - Advance Directives Living Will: Yes Power of Surfacing Technician: Yes Code Status: DNR-Comfort Care - Mobility Orders Bedrest - Rehabiliation Orders Rehab Potential: Poor Rehab Orders: ROM Exercises, Evaluation for Speech Therapy - Treatments Skin tear care topically daily PRN per policy, May check for fecal impaction rectally daily PRN, Fleet enema rectally every other day PRN cleansing purposes - Diet Orders Mechanical Soft CERTIFICATION: I certify that the transfer of the above named patient to an Extended Care Facility is necessary for the continuing treatment of the diagnosis listed. The above information is true and accurate reflection of patient's current condition. Confidential - Redisclosure prohibited without a patient's written consent.
--- NOTE | 2017-06-18 16:43 | Event Note ---
Date of Encounter: 06/18/17 Time of Encounter: 13:30 Long to our discussion with family guarding goals of care. The patient has had von Willebrand's disease for a long time and is required old blood transfusions a month sometimes multiple transfusions a week for a very long time. The patient has been able to be asked in a lucid moment he has never had trouble with continuing to get blood. Therefore the family wishes for him to continue to get blood for as long as he can. They do understand the blood is a resource and May at some point in time need to be limited, however as long as it is not, they wish him to get it. Reviewing hematology notes, they continued to recommend blood transfusions. Family views him getting blood like dialysis, in that he has had to have it very frequently for a very long period of time and it does give him a quality of life. The family also recognizes that his dementia is worsening, however he is still not at a 7 sea level. Therefore does not qualify for hospice for dementia. They wish him to be comfort care in that they do not wish him to have any further aggressive treatment other than blood draws for blood transfusions. If the patient were to acquire a pneumonia or some other major illness they might well opt not to treat it. As the patient wishes to get blood, and family is okay with drawing blood and giving blood the patient continues to not be hospice eligible on the basis of his von Willebrand's disease. Family agrees the patient would not want to be fed artificially, and therefore he will be allowed to eat and drink normally. The family hopes that in the future his transfusions can be done as an outpatient as they were meant to be, per the family this episode was precipitated [facility], was found to be anemic which for him is routine, but he could not get into the outpatient clinic for blood transfusion for 3 weeks. This was not acceptable given his low level of blood and he was sent to the emergency room and subsequently admitted. If at all possible family would like for him to come in and get his blood and then to [facility]. The patient is not able to make decisions for himself. Consequently he has a medical power of securities attorney the decisions for him. Medical power of securities attorney will be out of town for the next week or 2, family will designated spokesperson to speak for him in his absence.
[2017-06-22 14:33] LABS: Ristocetin Cofactor-VWF Active 26 % (51-215); Von Willebrand Factor Ag 28 % (52-214)
== END 2017-06-18 17:13 | DRG 812 ==
LOC: 3BNU 15:38 → EMEROO 15:38 → SUATTDRO 19:33 → 3BNU 20:38
PROVIDERS: ADMIT Nurse Practitioner Family; ATTEND Nurse Practitioner Family